=== PATIENT | male | born 1930 | race Caucasian/White ===

== ENCOUNTER 2017-06-14 16:14 | Outpatient (CLI) | payer MEDICARE | END 2017-06-14 16:15 | disposition critical access hospital (66) | LOC: EMS 16:14 | PROVIDERS: ATTEND Surgery | DX: M54.2 Cervicalgia (principal) | CPT/HCPCS: A0425; A0429 ==

== ENCOUNTER 2017-06-14 16:30 | Emergency (ER) | payer MEDICARE ==
[2017-06-14 16:44] VITALS: BP 155/93
[2017-06-14] MEDS ORDERED: IBUPROFEN 400 MG TABLET PO STA (17:18)
--- NOTE | 2017-06-14 17:20 | ED Physician Documentation ---
PD HPI NECK PAIN - Stated complaint Stated Complaint: NECK/BACK PX - Chief complaint Chief Complaint: Back Pain - History obtained from History obtained from: Patient, EMS - History of Present Illness Timing - onset: How many weeks ago (1) Timing - duration: Weeks (1) Timing - details: Still present, Intermittant Pain level max: 4 Pain level now: 2 Location: Mid Quality: Pain Associated symptoms: No: Fever, Weakness, Numbness, Incontinent of urine, Unable to urinate, Hematuria Improves with: Rest Worsened by: Movement Contributing factors: Other (none) - Additional information Additional information: Patient is severely demented and unable to give any history in the emergency department. History is obtained from EMS. After the initial history was obtained, I spoke with the nurse from [facility] who states that she thought he appeared more pale today than usual and stated that he said he had abdominal pain at one point. His vital signs were normal. She states that she contacted his PCPs office who stated to send the patient to the emergency department for evaluation. She states that he has not had any dark or tarry stools to her knowledge. States that he has not had any vomiting or fevers. Review of Systems Unable to obtain: Dementia PD PAST MEDICAL HISTORY - Past Medical History Past Medical History: Yes Neuro: Dementia - Present Medications Home Medications: Ambulatory Orders Medication Instructions Recorded Confirmed Acetaminophen [Tylenol] 650 mg PO Q6H PRN 06/14/17 06/14/17 Ibuprofen [Motrin] 400 mg PO Q6H PRN #20 tablet 06/14/17 Lorazepam [Ativan] 1 mg PO 06/14/17 risperiDONE [RisperDAL] 0.5 mg PO QD 06/14/17 06/14/17 - Allergies Allergies/Adverse Reactions: Allergies Allergy/AdvReac Type Severity Reaction Status Date / Time No Known Drug Allergies Allergy Verified 06/14/17 16:41 - Living Situation Living Arrangement: reports: residential - Social History Does the pt smoke?: No Does the pt have substance abuse?: No - Family History Family history: reports: Non contributory PD ED PE NORMAL - Vitals Vital signs reviewed: Yes - General General: No acute distress, Well developed/nourished, Other (Alert, pleasant) - HEENT HEENT: Atraumatic, PERRL, Moist mucous membranes, Pharynx benign - Neck Neck: Supple, no meningeal sign, No bony TTP, Other (Full range of motion without pain) - Cardiac Cardiac: RRR, Strong equal pulses - Respiratory Respiratory: No respiratory distress, Clear bilaterally - Abdomen Abdomen: Soft, Non tender, Non distended - Rectal Rectal: Pt declined - Derm Derm: Warm and dry - Extremities Extremities: No deformity - Neuro Neuro: No motor deficit, No sensory deficit, Other (Alert, oriented to person only) Results - Vitals Vitals: Vital Signs - 24 hr 06/14/17 16:36 Temperature 36.4 C L Heart Rate 64 Respiratory 16 Rate Blood Pressure 155/93 H O2 Saturation 97 Oxygen O2 Source Room air - Labs Labs: Laboratory Tests 06/14/17 06/14/17 06/14/17 18:13 18:13 18:15 WBC 8.2 RBC 4.69 L Hgb 15.0 Hct 43.8 MCV 93.4 MCH 32.1 H MCHC 34.3 RDW 13.9 Plt Count 227 MPV 7.0 L Neut # 5.6 Lymph # 1.6 [place] # 1.0 Eos # 0.0 Baso # 0.1 Absolute Nucleated RBC 0.00 Nucleated RBCs 0.0 Sodium 137 Potassium 3.6 Chloride 100 L Carbon Dioxide 28 Anion Gap 9.0 BUN 16 Creatinine 0.8 Estimated GFR (MDRD) 92 Glucose 115 H Calcium 9.4 Total Bilirubin 1.3 H AST 18 ALT 16 Alkaline Phosphatase 44 Total Protein 7.7 Albumin 4.8 Globulin 2.9 Albumin/Globulin Ratio 1.7 Lipase 15 L Urine Color YELLOW Urine Clarity CLEAR Urine pH 6.0 Ur Specific [place] 1.020 Urine Protein NEGATIVE Urine Glucose (UA) NEGATIVE Urine Ketones NEGATIVE Urine Occult Blood TRACE-INTA Urine Nitrite NEGATIVE Urine Bilirubin NEGATIVE Urine Urobilinogen 1 (NORMAL) Ur Leukocyte Esterase NEGATIVE Ur Microscopic Review NOT INDICATED Urine Culture Comments NOT INDICATED PD MEDICAL DECISION MAKING - ED course Complexity details: reviewed results, re-evaluated patient, considered differential, d/w patient ED course: Patient is an 86-year-old gentleman sent for neck pain as well is appearing pale to the nurse at the halfway today. His skin color is normal here. Vital signs are normal. Vital signs at the halfway are normal. No acute laboratory abnormalities. No UTI. He states that he does have some neck pain with movement, but this resolved with Motrin. He adamantly refuses a rectal examination and given his normal blood work and normal vital signs, will defer this at this time. We will have patient follow-up closely with his PCP. Patient appears very well. Ambulating without any difficulty. Normal gait. Abdomen remained soft, nontender nondistended on serial examination This document was made in part using voice recognition software. While efforts are made to proofread this document, sound alike and grammatical errors may occur. Departure - Departure Disposition: Home, Self Care Clinical Impression: Neck pain Condition: Good Instructions: ED Neck Pain No Trauma Follow-Up: ANDREA LI MD [Physician No Access] - Within 1 week Prescriptions: Ibuprofen [Motrin] 400 mg PO Q6H PRN #20 tablet PRN Reason: neck pain Comments: you need to follow up with your doctor for further care Your blood pressure was elevated today on check in to the emergency department. This does not mean that you have hypertension, it is a common phenomenon to check into the emergency department and have elevated blood pressure. I recommend that you see your primary care physician within the week to have it rechecked when you're feeling better. Discharge Date/Time: 06/14/17 19:03
[2017-06-14] MEDS ORDERED: IBUPROFEN 400 MG TABLET PO ONE (17:29)
[2017-06-14 18:18] LABS: BASOPHILS # (AUTO) 0.1 10^3/uL (0.0-0.1); BASOPHILS % (AUTO) 0.7 %; EOSINOPHILS % (AUTO) 0.5 %; HCT - HEMATOCRIT 43.8 % (42.0-52.0); LYMPHOCYTES # (AUTO) 1.6 10^3/uL (1.5-3.5); LYMPHOCYTES % (AUTO) 18.9 %; MEAN CORPUSCULAR HEMOGLOBIN 32.1 pg (27.0-31.0); MEAN CORPUSCULAR HGB CONC 34.3 g/dL (32.0-36.0); MEAN CORPUSCULAR VOLUME 93.4 fL (80.0-94.0); MONOCYTES % (AUTO) 12.1 %; NEUTROPHILS # (AUTO) 5.6 10^3/uL (1.5-6.6); NEUTROPHILS % (AUTO) 67.8 %; RED BLOOD COUNT 4.69 10^6/uL (4.70-6.10); RED CELL DISTRIBUTION WIDTH 13.9 % (12.0-15.0); UNCORRECTED WHITE BLOOD COUNT 8.2 x10^3/uL; WHITE BLOOD COUNT 8.2 x10^3/uL (4.8-10.8)
[2017-06-14 18:32] LABS: ALBUMIN/GLOBULIN RATIO 1.7 (1.0-2.2); BILIRUBIN,TOTAL 1.3 mg/dL (0.2-1.0); CALCIUM 9.4 mg/dL (8.5-10.3); CREATININE 0.8 mg/dL (0.6-1.2); POTASSIUM 3.6 mmol/L (3.5-5.0); TOTAL PROTEIN 7.7 g/dL (6.7-8.2)
[2017-06-14 18:33] LABS: BILIRUBIN,URINE NEGATIVE (NEGATIVE)
[2017-06-14 18:34] LABS: UA CHARGE (STRIP ONLY) YES; UR CULTURE IF IND NOT INDICATED
== END 2017-06-14 19:03 | disposition home or self-care (01) ==
LOC: EDUNIT# → ED 16:30
DX: M54.2 Cervicalgia (principal); R03.0 Elevated blood-pressure reading, without diagnosis of hypertension; F03.90 Unspecified dementia, unspecified severity, without behavioral disturbance, psychotic disturbance, mood disturbance, and anxiety
CPT/HCPCS: 36415; 80053; 81003; 83690; 85025; 99282; 99283; A9270; 81001; 87086

== ENCOUNTER 2017-08-25 18:32 | Outpatient (CLI) | payer MEDICARE | END 2017-08-25 18:33 | disposition critical access hospital (66) | LOC: EMS 18:32 | PROVIDERS: ATTEND Surgery | DX: R69 Illness, unspecified (principal) | CPT/HCPCS: A0425; A0429 ==

== ENCOUNTER 2017-08-25 18:47 | Emergency (ER) | payer MEDICARE ==
--- NOTE | 2017-08-25 19:01 | ED Physician Documentation ---
PD HPI LOWER EXT INJURY - Stated complaint Stated Complaint: R HIP PN - Chief complaint Chief Complaint: Ext Problem - History obtained from History obtained from: EMS - History of Present Illness PD HPI LOW EXT INJURY LOCATION: Other (This is a very demented 86-year-old gentleman who presents from an assisted living facility. Reportedly he had a ground-level fall earlier today and he is favoring 1 of his legs and they are worried about a hip injury. The patient is a completely unreliable historian,, claims no pain at all.) Review of Systems Unable to obtain: Confused, Dementia PD PAST MEDICAL HISTORY - Past Medical History Neuro: Dementia - Present Medications Home Medications: Ambulatory Orders Medication Instructions Recorded Confirmed Acetaminophen [Tylenol] 650 mg PO Q6H PRN 06/14/17 08/25/17 Lorazepam [Ativan] 1 mg PO QID 06/14/17 08/25/17 risperiDONE [RisperDAL] 0.5 mg PO BID 06/14/17 08/25/17 - Allergies Allergies/Adverse Reactions: Allergies Allergy/AdvReac Type Severity Reaction Status Date / Time No Known Drug Allergies Allergy Verified 08/25/17 18:54 - Social History Does the pt smoke?: No Does the pt have substance abuse?: No PD ED PE NORMAL - Vitals Vital signs reviewed: Yes - General General: Other (He is alert but completely disoriented, does not know where he is or his name, he follows commands) - HEENT HEENT: PERRL, EOMI - Neck Neck: Supple, no meningeal sign, No bony TTP - Cardiac Cardiac: RRR, No murmur - Respiratory Respiratory: No respiratory distress, Clear bilaterally - Abdomen Abdomen: Normal bowel sounds, Soft, Non tender - Extremities Extremities: Other (No tenderness of the hips or knees. I am able to get him up and he will walk and bear weight but with a mild limp.) - Psych Psych: Normal affect Results - Vitals Vitals: Vital Signs - 24 hr 08/25/17 08/25/17 18:51 20:25 Temperature 36.4 C L Heart Rate 86 55 L Respiratory 14 16 Rate Blood Pressure 133/100 H 136/83 H O2 Saturation 95 95 Oxygen O2 Source Room air - Rads (name of study) B hip and Knee xrs Radiology: EMP read contemporaneously (Degenerative disease of the knees, no obvious acute disease.) PD MEDICAL DECISION MAKING - ED course ED course: He is found to be limping, possible fall, he is an unreliable historian. He is able to walk and bear weight and the examination is really not consistent with a hip fracture. Departure - Departure Disposition: 01 Home, Self Care Clinical Impression: Hip pain Qualifiers: Laterality: bilateral Qualified Code(s): M25.551 - Pain in right hip Degenerative arthritis of knee Qualifiers: Osteoarthritis type: primary Laterality: bilateral Qualified Code(s): M17.0 - Bilateral primary osteoarthritis of knee Condition: Good Record reviewed to determine appropriate education?: Yes Instructions: Osteoarthritis Common Sites Comments: Call your doctor to arrange a follow-up appointment, make the next available appointment. In the interim, return anytime if worse or if new symptoms develop. Your blood pressure was elevated today on check into the emergency department. This does not mean that you have hypertension, it is a common phenomenon to come to the emergency department and have elevated blood pressure. I recommend that you see your primary care physician within the week to have it rechecked when you are feeling better. Discharge Date/Time: 08/25/17 21:31
[2017-08-25 20:25] VITALS: BP 136/83
--- NOTE | 2017-08-25 20:29 | XRAY Preliminary Report ---
Exam: XR HIPS 2V BILAT IMPRESSION: No acute disease. [facility] SITE ID: [id number]
--- NOTE | 2017-08-25 20:32 | XRAY Preliminary Report ---
Exam: XR KNEE 3 VIEW BILAT IMPRESSION: Degenerative changes including multiple loose bodies, right more than left. No definite a cute disease. [facility] SITE ID: [id number]
--- NOTE | 2017-08-25 20:32 | XRAY Report ---
EXAM: PELVIS AND BILATERAL HIPS RADIOGRAPHY EXAM DATE: 08/25/2017 08:02 PM. CLINICAL HISTORY: Trauma, pain. COMPARISON: None. TECHNIQUE: 1 view of the pelvis and 1 view of each hip. FINDINGS: Bones: Normal. No fracture or bone lesion. Joints: Mild bilateral hip joint space narrowing. Unremarkable SI joints and pubic symphysis. Degener ative changes in lower lumbar spine. Soft Tissues: Unremarkable. IMPRESSION: No acute disease. [facility] Referring Provider Line: [phone] SITE ID: [id number]
--- NOTE | 2017-08-25 20:34 | XRAY Report ---
EXAM: BILATERAL KNEE RADIOGRAPHY EXAM DATE: 08/25/2017 08:02 PM. CLINICAL HISTORY: Trauma, pain. COMPARISON: None. TECHNIQUE: Each knee, 3 views. FINDINGS: Bones: Osteopenia. No definite fracture or other bone lesion. Joints: Mild 3 compartment joint space narrowing with marginal lipping. Multiple bilateral loose bodi es, the largest on the right measuring 15 mm in diameter and largest on the left measuring almost 9 m m in diameter. No definite effusion. Soft Tissues: Soft tissue calcification adjacent to right femoral condyle. Otherwise unremarkable. IMPRESSION: Degenerative changes including multiple loose bodies, right more than left. No definite a cute disease. [facility] Referring Provider Line: [phone] SITE ID: [id number]
== END 2017-08-25 21:31 | disposition home or self-care (01) ==
LOC: EDUNIT# → ED 18:47
DX: M25.551 Pain in right hip (principal); W18.39XA Other fall on same level, initial encounter; Y92.099 Unspecified place in other non-institutional residence as the place of occurrence of the external cause; R03.0 Elevated blood-pressure reading, without diagnosis of hypertension; F03.90 Unspecified dementia, unspecified severity, without behavioral disturbance, psychotic disturbance, mood disturbance, and anxiety
CPT/HCPCS: 73521; 99283

== ENCOUNTER 2017-09-09 10:15 | Outpatient (CLI) | payer MEDICARE ==
--- NOTE | 2017-09-09 14:47 | CONSULTATION NOTE ---
Palliative Care Consultation - Referral Referring Provider: Dr Lombardo (Dr Del Toro is PCP) Time of Visit: 10:15 Referral setting: Assisted living (Seen in home setting, which is [facility] unit, due to taxing and considerable effort required to leave the home due to advanced dementia and unsteady gait.) - Information Sources History/Review of Systems obtained from: Family, Nursing Exam limitations: Clinical condition (Advanced dementia; patient unable to verbally respond, due to combination of advanced dementia and significant [place].) - History of Present Illness Brief History of Present Illness: This is an 86-year-old gentleman with advanced dementia who has had two recent ED visits. In June 2017 for neck/back pain and abdominal pain, with all tests negative, and another ED visit Aug 25, 2017, for hip pain following a ground level fall. He moved to [facility] on Aug 23, 2017, with his , Varsha who also has dementia. Apart from his advanced dementia, he has very little past medical history (HLD, BPH, AAA, glaucoma, sleep apnea not on CPAP). His eldest son, Craig, lives in [place] and travels here about every 5-6 weeks to visit his father and step- mother. The patient and his retired to [facility] around 1986. Craig noticed decline in both and in October 2016 and he helped them move into [facility] assisted living in March 2017. He then noted very steep ddecline in cognition ability between March and July 2017 -- a marked difference in their function. They then moved on Aug 23, 2017 to [facility]. He reports that they have a high level of denial and do not believe they have changed. They have always been very active -- his loves to walk and hike, and he loved cycling, and was stilling doing it back in March of this year. They are not happy being here, and are "escape artists," trying to get out. They will look out the front window and say that they want to go to "that hotel" ([facility]'s building, where they lived from March to August 2017 ). The patient is still able to point out his former home on [address] [address] [facility] on a map. Because Craig lives so far away and can't get here very often to take care of his father and step-mother, he was considering moving them to a facility in [place], [place], to be closer to his other brother, Cipriano, who lives in [place], [place]. It's a two-hour round trip, and Cipriano said he would be able to visit only every two weeks or so. Craig has decided to keep them at [facility] for now, in order to not submit them to further stress, trauma, and change in their environment. He will continue to visit every 5-6 weeks. The patient was alert during my visit, but mainly non-responsive to my questions , inquiries, or comments. He uttered only one or two instances of "no." It is a combination of hard of hearing and dementia, but more due to his rapidly advancing dementia. The patient refuses to wear hearing aids, per his son. He also reports that the patient's decline in responsiveness is very recent. He transfers easily from chair to standing, but has an unsteady gait. He favors his L foot, which is from a childhood injury of L ankle, the bones of which are quite enlarged. He ambulates without a walker. He prefers a cane but is not permitted to use one in the facility. His is quite a nimble walker, and she "pulls" him along, by linking her arm in his, unfortunately increasing his fall risk. They do not share the same room, but are constantly together. Medical/Surgical History - Past Medical History Cardiovascular: reports: High cholesterol, Murmur (unspecified) Respiratory: reports: Sleep apnea. denies: CPAP use Neuro: reports: Dementia : reports: Benign prostate hypertrophy HEENT: reports: Glaucoma Musculoskeletal: reports: Osteoarthritis - Past Surgical History Cardiovascular: reports: AAA Social History - Living Situation Living arrangement: Assisted living Living Situation: With spouse/s.o., With caregiver(s) Support System: The patient has 3 sons. Son/DPOA Craig lives in [place] and visits every 5-6 weeks. Son, Cipriano, lives in [place], [place] and another son, Tk, lives on the streets in [place], [place]. Medications/Allergies - Medications Home Medications: Ambulatory Orders Medication Instructions Recorded Confirmed Lorazepam [Ativan] 0.5 mg PO Q6H PRN 06/14/17 09/09/17 risperiDONE [RisperDAL] 0.5 mg PO BID 06/14/17 09/09/17 Acetaminophen 500 mg PO Q4H PRN MDD 3000 mg max 09/09/17 09/09/17 per day - Allergies Allergies/Adverse Reactions: Allergies Allergy/AdvReac Type Severity Reaction Status Date / Time No Known Drug Allergies Allergy Verified 08/25/17 18:54 Review of Systems - Constitutional Constitutional: reports: Weight loss (Small loss over 3 months: Jul 2017 188 lbs. Aug 2017 184 lbs. Sep 2017 183.8 lbs.) - Ears, Nose & Throat Ears, Nose & Throat: reports: Hearing loss. denies: Hearing aids (refuses to wear them) - Cardiovascular Cardiovascular: denies: Chest pain, Edema - Respiratory Respiratory: denies: Cough, SOB at rest, SOB with exertion - Gastrointestinal Gastrointestinal: denies: Constipation - Genitourinary Genitourinary: denies: Dysuria - Musculoskeletal Musculoskeletal: reports: Joint swelling - Neurological Neurological: reports: Memory problems, Abnormal gait Physical Exam - Vital Signs Temperature: 97.4 F Pulse Rate: 53 O2 Saturation: 95 Blood Pressure: 118/78 - Physical Exam General Appearance: positive: No acute distress, Nonresponsive (no verbal responses. Was able to generally follow directions when I spoke directly into his ear) Eyes Bilateral: positive: EOMI, No lid inflammation, Conjunctivae nml, No scleral icterus ENT: positive: No signs of dehydration Neck: positive: Thyroid nml, No JVD, Trachea midline Cardiovascular: positive: Decreased pulse(s) Respiratory: positive: No respiratory distress, Breath sounds nml Skin: positive: No symptoms Extremities: positive: No pedal edema, Other (L ankle bone deformation, enlarged ). negative: Full ROM Neurologic/Psychiatric: positive: Disoriented to place, Disoriented to time, Flat affect Palliative Care - POLST Patient has POLST: No Pain: Location (L ankle), Comment (chronic, lifelong pain L ankle, but no complaints) Tiredness/Fatigue: None Drowsiness/Sedation: None Nausea: None Depression: None Anxiety: None Dyspnea: None Anorexia: None Sleep: Sleeps well Constipation: No Performance Status: Previous level of function prior to this episode: Bicycling in March, when he and his moved to assisted living. Current level of functioning: Significant cognitive decline in past 6 months, with single-syllable verbalization and lack of responsiveness being very recent. Requires assistance for all ADLs and showering. Still ambulatory, with unsteady gait. Minor weight loss (4 lbs in 2 months). Palliative Care Performance Status: 60% FAST scale for Alzheimer's: 7b - Palliative Care Discussion: Who is present: The patient, his Varsha, his son Craig, and myself. Surrogate decision maker: Son/DPLETHA Law. [phone] mobile. lives in [place]. Son/2nd DPOA Cipriano Law. [phone]. Lives in [place] Patient/Family understanding of the illness: Neither the patient nor his have insight or understanding of their dementia. The son reports that they are in a state of denial. They can even get upset, according to the son, with the mention of the name of a provider who had told them they had a serious illness. The son has a realistic evaluation of their dementia and has witnessed their very rapid decline in just the past year, and particularly between March and July. Information preferences: Go through the son, Craig. Most important goals: He does not want to prolong their lives, knowing how active they used to be, and how his father, especially, would never want to knowingly live like this. He does hope that the disease process of their dementia will not drag out for 10 years. His preference is comfort care, and he is ready to sign the POLST specifying DNR and comfort. However, he wants to first review the advanced directive his father signed, and that is back in [place]. He also wants to discuss it with his brother Cipriano, so he has a chance to weigh in. He will fax or email it back to me, and mail the original back so I can sign it and put it in the medical records, with the original to [facility]. Impression and Recommendations - Palliative Care Impression: This is an 86-year-old gentleman with advanced dementia and very little in the way of medical history. He recently moved into [facility] dementia unit with his , who also has dementia. they both have had a rapid progression of dementia in the past year, and particularly the past 6 months. The patient is a high fall risk since he is ambulatory but with a stiff gait, and his who "pulls" him down the hallways. He does not currently meet criteria for Hospice, but his son wants Palliative Care support and monitoring. This will help since none of the patient's sons live in the area. Time Spent: 60 minutes were spent with more than 50% of the time spent on counseling, education, and coordination of care regarding dementia and end of life. Provided anticipatory guidance.
== END 2017-09-09 10:16 | disposition home or self-care (01) ==
LOC: PC 10:15
PROVIDERS: ATTEND Nurse Practitioner
DX: Z51.5 Encounter for palliative care (principal); F03.90 Unspecified dementia, unspecified severity, without behavioral disturbance, psychotic disturbance, mood disturbance, and anxiety; G47.30 Sleep apnea, unspecified; N40.0 Benign prostatic hyperplasia without lower urinary tract symptoms; G89.29 Other chronic pain; M25.572 Pain in left ankle and joints of left foot; R26.81 Unsteadiness on feet; Z91.81 History of falling

== ENCOUNTER 2017-11-11 15:19 | Outpatient (CLI) | payer MEDICARE ==
--- NOTE | 2017-11-11 16:05 | CONSULTATION NOTE ---
Palliative Care Follow Up - Referral Referring Provider: Referral: Dr Lombardo. PCP: Dr Del Toro Time of Visit: 11/11/2017. 10:10 - 10:40 Referral setting: Assisted living (Seen in home setting due to taxing and considerable effort required to leave the home setting due to advanced dementia and unsteady gait.) - Information Sources Records reviewed: RN notes reviewed, Previous records reviewed History/Review of Systems obtained from: Patient, Family, Nursing Exam limitations: Clinical condition (Advanced dementia; limited communication capacity; memory loss) - History of Present Illness Update Brief HPI Update: This is an 86-year-old gentleman with advanced dementia who has had steady functional and cognitive decline for the past year, and especially since last summer. He and his have been living at [facility] dementia unit since August 23, 2017. His medical history includes HLD, BPH, AAA, glaucoma, sleep apnea not on CPAP. His eldest son, Craig, is visiting here for a few days from [place], he visits his father and stepmother approximately every 5-8 weeks. The patient also has another son, Cipriano, who lives in [place], [place]. Cipriano visited earlier in October and is scheduled for another visit at the end of November. The patient has been extremely stable and with no outstanding issues since my last visit 2 months ago. Nursing says he is extremely pleasant and easy to work with, he and his are now sharing at the same room at the facility, and this is working out very well. They are constantly together ambulating in the hallways, and his , Varsha, has gone on 1 of the Wednesday outings on the bus. However the patient has not done this himself, and Craig feels this is not a good idea since he would likely try to exit the bus and "go home." While Craig the son is here, father and son are enjoying a few beers together , which provides gives a lot of pleasure for both patient and son. The patient is very pleasant, he does not follow directions very well, likely due to his being extremely hard of hearing and it is difficult for him to hear the health and wellness instructor feminine voice. He is able to hear his son's comments and has the capacity to speak a simple, complete sentence. Most of his communication, though , is 1-2 words, and in general he speaks very little. Social History - Living Situation Living arrangement: Assisted living ([facility] dementia unit) Living Situation: With spouse/s.o., With caregiver(s) Support System: The patient has 3 sons. Son/GIANA Srinivasan lives in [place] and visits every 5- 8 weeks. Son, Cipriano, lives in [place], [place], and another son, Tk lives on the streets in [place], [place]. Medications/Allergies - Medications Home Medications: Ambulatory Orders Medication Instructions Recorded Confirmed Lorazepam [Ativan] 0.5 mg PO Q6H PRN 06/14/17 09/09/17 risperiDONE [RisperDAL] 0.5 mg PO BID 06/14/17 09/09/17 Acetaminophen 500 mg PO Q4H PRN MDD 3000 mg max 09/09/17 09/09/17 per day - Allergies Allergies/Adverse Reactions: Allergies Allergy/AdvReac Type Severity Reaction Status Date / Time No Known Drug Allergies Allergy Verified 08/25/17 18:54 Review of Systems - Constitutional Constitutional: reports: Weight loss (5 lb weight loss over 8 months: 186.2 lbs 11/08/2017. 191 lbs 03/10/2017.) - Ears, Nose & Throat Ears, Nose & Throat: reports: Hearing loss (significant. does not wear hearing aids.) - Gastrointestinal Gastrointestinal: reports: Good appetite. denies: Constipation (bowel movements every 1-2 days), Change in bowel habits, Vomiting - Genitourinary Genitourinary: denies: Frequency - Musculoskeletal Musculoskeletal: reports: Joint swelling (L ankle) - Neurological Neurological: reports: Memory problems, Abnormal gait - Psychiatric Psychiatric: denies: Aggitation, Behavior disturbances - Endocrine Endocrine: reports: Intolerance to cold - Other Findings Other Findings: Incomplete ROS due to advanced dementia. Physical Exam - Vital Signs Temperature: 97.0 F Pulse Rate: 70 O2 Saturation: 95 Blood Pressure: 124/82 - Physical Exam General Appearance: positive: No acute distress, Alert Eyes Bilateral: positive: No lid inflammation, Conjunctivae nml, No scleral icterus ENT: positive: No signs of dehydration Neck: positive: Thyroid nml, No JVD, Trachea midline Cardiovascular: positive: Regular rate & rhythm, No murmur, No gallop Respiratory: positive: No respiratory distress, Breath sounds nml Abdomen: positive: Soft. negative: Tenderness, Distended, Obese Skin: negative: No symptoms Extremities: positive: Joint swelling (Chronic L ankle swelling, limited ROM for decades) Neurologic/Psychiatric: positive: Disoriented to person, Disoriented to place, Disoriented to time, Flat affect Palliative Care - POLST Patient has POLST: Yes POLST Status: DNR, Selective Treatment Pain: No pain (no PRN pain medication (Tylenol) used this month so far) Tiredness/Fatigue: Mild (1-3) Drowsiness/Sedation: Mild (1-3) Anxiety: None (no PRN anxiolytic used this month) Anorexia: None Constipation: No - Palliative Care Discussion: Discussed with son, Craig, that the patient's status has been stable since the last palliative care visit. He is on daily Risperdal and we discussed initiating a GDR (gradual dose reduction) since he has been stable without behavioral issues. The son chooses at this time to continue with the current dose, saying, "if it is not broken, do not fix it." He confirmed that goals of care remain the same; that is, concentrate on comfort and quality of life without any attempts made to prolong life. He particularly wants to have no "dementia" medications given. He is overall very happy with the care his father and stepmother are receiving at this facility, and continues to plan visiting here about every 5-8 weeks. We agreed that he would call me when his next trip is scheduled and for follow- up visit. Or that the facility will call me in between times as needed. Impression and Recommendations - Palliative Care Impression: This is an 86-year-old gentleman with advanced dementia and very little in the way of medical history. She has been living at [facility] dementia unit along with his , LCAYTON, since August 2017. They both have experienced rapid progression of their dementia in the past year. He remains a high fall risk due to his ambulatory status and stiff gait and who "pulls" him down the hallways. Family's goals of care are comfort care without necessary prolongation of life. The patient currently does not meet criteria for hospice but palliative care will continue to monitor and transition to hospice when appropriate. Recommendations/Counseling Done: Advanced dementia: Stable without behaviors. Continue Risperdal daily at current dosage of 0.5 mg twice daily. Constipation: Stable without issue, managed with diet. Anxiety: Stable, anxiolytic as needed has not been used this month. Continue to monitor for changes in mood and behavior. Advanced care planning: POLST is in place, DNR and selective treatment. Goal is quality of life and comfort care, without prolongation of life. Son, Craig, will call when his next visit to [place] is planned to set up a follow-up visit. Also follow-up with patient on an as-needed basis. Family wants ongoing monitoring and oversight by palliative care , with transition to hospice when appropriate. Time Spent: 30 minutes were spent with more than 50% of the time spent on counseling, education, and coordination of care.
== END 2017-11-11 15:20 | disposition home or self-care (01) ==
LOC: PC 15:19
PROVIDERS: ATTEND Nurse Practitioner
DX: Z51.5 Encounter for palliative care (principal); F03.90 Unspecified dementia, unspecified severity, without behavioral disturbance, psychotic disturbance, mood disturbance, and anxiety; R26.81 Unsteadiness on feet; Z66 Do not resuscitate

== ENCOUNTER 2018-01-27 12:13 | Outpatient (CLI) | payer MEDICARE ==
--- NOTE | 2018-01-27 12:20 | CONSULTATION NOTE ---
Palliative Care Follow Up - Referral Referring Provider: Dr Lombardo referring; Dr Del Toro PCP Time of Visit: 01/27/2018. 10:25 - 11:05 Referral setting: Assisted living (Seen in home setting due to taxing and considerable effort required to leave the home due to advanced dementia and unsteady gait. Also access to facility documentation in required.) Referral Reason: Advanced dementia - Information Sources Records reviewed: RN notes reviewed, Previous records reviewed History/Review of Systems obtained from: Patient, Family, Nursing Exam limitations: Clinical condition (Advanced dementia/cognitive decline. Significant loss of hearing.) - History of Present Illness Update Brief HPI Update: -This is an 87-year-old gentleman with advanced dementia and significant hearing loss who has had steady functional and cognitive decline for the past year especially since summer 2016. -He has lived at [facility] with his , Varsha, since August 2017. -Medical history: HLD, murmur (unspecified), sleep apnea (no CPAP use), advanced dementia, BPH, glaucoma, osteoarthritis, AAA repair, date unspecified. -Eldest son, Craig, is present at this visit, as is patient's , Varsha. -Craig lives in [place] and comes every 5-6 weeks to visit his father and stepmother. -Craig has noticed a marked decline in his father's cognition and functionality. -The patient has much slower cognitive processing, part of this could be significant hearing loss and lack of comprehension. -Craig and Nursing note an increase in his fatigue and decrease in his cognition and energy levels. -Mild weight loss in the past month of 3-1/2 pounds, CROS for details. -Nursing notes he is "one of our best patients" with no behavior issues, he is very quiet and cooperative, eats well, especially ice cream. 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 It is getting harder for him to keep up her pace. -The only medication he takes regularly is risperidone 0.5mg BID. He has not taken any PRN lorazepam or Tylenol this month. Social History - Living Situation Living arrangement: Assisted living ([facility] dementia unit) Living Situation: With spouse/s.o., With caregiver(s) Support System: The patient and his have been together over 40 years and are very close. The patient has 3 sons. Craig is the eldest and the DPOA, he lives in [place] with his . Son Cipriano lives in [place], [place], and visits occasionally. Third son, Tk, lives "on the streets" of [place], [place]. Medications/Allergies - Medications Home Medications: Ambulatory Orders Medication Instructions Recorded Confirmed Lorazepam [Ativan] 0.5 mg PO Q6H PRN 06/14/17 01/27/18 risperiDONE [RisperDAL] 0.5 mg PO BID 06/14/17 01/27/18 Acetaminophen 500 mg PO Q4H PRN MDD 3000 mg max 09/09/17 01/27/18 per day - Allergies Allergies/Adverse Reactions: Allergies Allergy/AdvReac Type Severity Reaction Status Date / Time No Known Drug Allergies Allergy Verified 08/25/17 18:54 Review of Systems - Constitutional Constitutional: reports: Fatigue (increasing), Weight loss (183.6 lbs 01/04/18. 187 lbs 12/06/17. 186.2 lbs 11/08/17. 187 lbs 10/10/17. 1838 lbs 09/03/17. 184 lbs 08/08. 188 lbs 07/14/17. 191 lbs 03/10/17. Mild weight loss of 3.4 lbs (1.8%) in one month, from December to January 2018.) - Eyes Eyes: reports: Corrective lenses - Ears, Nose & Throat Ears, Nose & Throat: reports: Hearing loss (significant), Hearing aids (won't wear them) - Cardiovascular Cardiovascular: reports: Decr. exercise tolerance - Gastrointestinal Gastrointestinal: reports: Other (Unable to monitor bowel movements; he goes to the bathroom independently.) - Genitourinary Genitourinary: denies: Incontinence - Neurological Neurological: reports: Abnormal gait (unsteady, hesitant, short steps) - Psychiatric Psychiatric: denies: Anxiety, Behavior disturbances - Other Findings Other Findings: Unable to obtain ROS from patient. Obtained partial information from nursing and family. Physical Exam - Vital Signs Temperature: 96.5 F Pulse Rate: 80 O2 Saturation: 99 (room air) Blood Pressure: 117/72 - Physical Exam General Appearance: positive: No acute distress, Lethargic, Other (had difficulty comprehending, likely a combination of cognitive deficit and inability to hear) Eyes Bilateral: positive: No lid inflammation, Conjunctivae nml, No scleral icterus ENT: positive: No signs of dehydration Neck: positive: No JVD, Trachea midline Cardiovascular: positive: Regular rate & rhythm, No murmur Respiratory: positive: Chest non-tender, No respiratory distress, Breath sounds nml, Diminished throughout Skin: positive: No symptoms Extremities: positive: Joint swelling (L ankle: chronic for many years, related to old injury) Neurologic/Psychiatric: positive: Disoriented to place, Disoriented to time, Flat affect Palliative Care - POLST Patient has POLST: Yes POLST Status: DNR, Selective Treatment Tiredness/Fatigue: Moderate (4-6) Sleep: Other (Increased need for sleep) Constipation: Comment (Unable to monitor; he goes to the bathroom independently) Performance Status: -Patient is continent of bowel and bladder. -Able to self-transfer with effort. -Ambulates independently, gait is hesitant and slow. -Appetite is OK, has a recent mild weight loss. He like and is motivated by ice cream and cookies. - Palliative Care Discussion: Discussed Hospice, what it is and its benefits with son, provided anticipatory guidance. Son is supportive of eventual transition to hospice when his father meets criteria. His main concern is that patient and his can remain together, and that they can remain in this facility. The focus and goal of care remains comfort and not using medications to prolong life. Impression and Recommendations - Palliative Care Impression: This is an 87-year-old gentleman with advanced dementia and very little in the way of medical history. He lives at [facility] with his and continues to be ambulatory but is slowly and steadily declining in functionality, cognition, and energy levels. His social support is having his at his side , as well as his son from the [facility] who visits him regularly every 5-6 weeks, and another son on the [facility] who visits sporadically. He would benefit from continued oversight of palliative care, with monitoring for eventual transition to hospice when appropriate. Recommendations/Counseling Done: Weight loss: He has had a mild weight loss: 3.4 lbs (1.8%) between December and January 2018, and 7.4 lbs (3.8%) over 11 months. He was 191 lbs 03/10/17, 187 lbs 12/06/17, and 183.6 lbs 01/04/18. Okay to provide treats like ice cream and cookies. Can consider adding Ensure. I increased weight monitoring to twice monthly. Constipation: Managed by diet. Unable to monitor since he is continent and goes to the toilet independently. Nursing will continue to monitor. Anxiety: This has been stable, he is not using the PRN lorazepam, and nursing notes no behaviors. Continue the low dose of risperidone. Can consider discontinuation, in consultation with son. This is the only medication he is taking. Dementia: Slow, steady decline in cognition, exacerbated by his significant hearing loss, and refusal to wear his hearing aids. He is more fatigued and wants to sleep more. May consider labs at next visit (his son will visit in March ): in Jun 2017 his Hgb/Hct was normal: 15.0 and 43.8, RBC low at 4.69. Advanced care planning: POST is DNR and selected interventions. Son wants the goal to be comfort and keeping the patient together with his , and no life- prolonging medications. He is open to Hospice when criteria are met. Next visit: Sometime in March, son Craig will email me when he is coming to town. Time Spent: 30 minutes were spent with more than 50% of the time spent on counseling, education, and coordination of care.
== END 2018-01-27 12:14 | disposition home or self-care (01) ==
LOC: PC 12:13
PROVIDERS: ATTEND Nurse Practitioner
DX: Z51.5 Encounter for palliative care (principal); R63.4 Abnormal weight loss; F41.9 Anxiety disorder, unspecified; F03.90 Unspecified dementia, unspecified severity, without behavioral disturbance, psychotic disturbance, mood disturbance, and anxiety; R26.81 Unsteadiness on feet; Z79.899 Other long term (current) drug therapy; H91.93 Unspecified hearing loss, bilateral; Z66 Do not resuscitate

== ENCOUNTER 2018-03-29 21:17 | Outpatient (CLI) | payer MEDICARE ==
--- NOTE | 2018-03-29 21:28 | CONSULTATION NOTE ---
Palliative Care Follow Up - Referral Referring Provider: Dr Del Toro Time of Visit: 03/29/2018. 12:55 - 13:10 Referral setting: Assisted living (Seen in home setting due to taxing and considerable effort required to leave the home due to advanced dementia and unsteady gait. Also access to facility documentatoin is required.) Referral Reason: Advanced dementia - Information Sources Records reviewed: RN notes reviewed, Previous records reviewed History/Review of Systems obtained from: Family, Nursing Exam limitations: Clinical condition (Advanced dementia; significant hard of hearing; difficulty processing questions.) - History of Present Illness Update Brief HPI Update: -87-year-old gentleman with advanced dementia, significant hearing loss, and slow but steady functional and cognitive decline particularly since summer 2016. -Medical history: HLD, murmur (unspecified), sleep apnea (no CPAP use), advanced dementia, BPH, glaucoma, osteoarthritis, AAA repair, date unspecified. -He has been living with his Varsha at [facility] since August 2017. -Eldest son, Craig, visits about every 5-6 weeks from [place]. - Varsha fell today and split her lip, taken to ED earlier today to get sutures, and Craig now needs to take her to a dentist for possible loose teeth. -Patient is quite calm and unaffected with this activity around him. -He has been slowly and steadily declining. -Nursing feels her would be declining more quickly if it weren't for his and her energy level. She keeps him walking around the facility every day; otherwise, he would like be sitting or lying most of the time. -His son Craig notices he walks slower, but he is talking more during this visit. -Patient still loves sweets: Ice cream, cakes, cookies. -He has gained a modest amount of weight. March 2017 he weighed 191 pounds, and on 03/23/18 he weighed 194 pounds. During this past year he ranged from 183 and 188 lbs. -He is not able to hear my voice even when I am speaking quite loudly, and looks at me but doesn't respond, and appears to have problems processing. -Higher voices are difficult for him to hear. -However he does respond immediately to his son's comments and questions, seemingly without problems hearing his deeper voice. Replies are short, 1-3 words -Nursing reports he is very stable, sweet and easy to work with. Social History - Living Situation Living arrangement: Assisted living ([facility] demet[facility] unit) Living Situation: With spouse/s.o., With caregiver(s) Support System: Son, Craig, is DPOA, lives in [place], and flies here every other month. Son Cipriano lives in [place], [place], visits occasionally. Third son, Tk, lives "on the streets" in [place], [place]. Patient has been to Varsha 40+ years. Medications/Allergies - Medications Home Medications: Ambulatory Orders Medication Instructions Recorded Confirmed Lorazepam [Ativan] 0.5 mg PO Q6H PRN 06/14/17 03/29/18 risperiDONE [RisperDAL] 0.5 mg PO BID 06/14/17 03/29/18 Acetaminophen 500 mg PO Q4H PRN MDD 3000 mg max 09/09/17 03/29/18 per day - Allergies Allergies/Adverse Reactions: Allergies Allergy/AdvReac Type Severity Reaction Status Date / Time No Known Drug Allergies Allergy Verified 08/25/17 18:54 Review of Systems - Constitutional Constitutional: reports: Fatigue, Weight gain (March 2017 he weighed 191 pounds, and on 03/23/18 he weighed 194 pounds. During this past year he ranged from 183 and 188 lbs.). denies: Poor appetite - Eyes Eyes: reports: Corrective lenses - Ears, Nose & Throat Ears, Nose & Throat: reports: Hearing loss (significant), Hearing aids (doesn't wear them) - Cardiovascular Cardiovascular: reports: Decr. exercise tolerance - Respiratory Respiratory: denies: Cough - Gastrointestinal Gastrointestinal: denies: Constipation, Diarrhea - Genitourinary Genitourinary: denies: Incontinence - Musculoskeletal Musculoskeletal: reports: Stiffness, Limited range of motion, Joint swelling (L ankle, chronic x years). denies: Assistive devices, Transfer issues - Neurological Neurological: reports: Memory problems, Abnormal gait (slow, unsteady) - Psychiatric Psychiatric: denies: Aggitation, Behavior disturbances Physical Exam - Vital Signs Temperature: 96.6 F Pulse Rate: 61 O2 Saturation: 96 Blood Pressure: 118/75 - Physical Exam General Appearance: positive: No acute distress, Alert Eyes Bilateral: positive: EOMI, No lid inflammation, Conjunctivae nml, No scleral icterus ENT: positive: No signs of dehydration Neck: positive: Trachea midline Cardiovascular: positive: Regular rate & rhythm, No murmur, No gallop Respiratory: positive: Chest non-tender, No respiratory distress, Diminished throughout Skin: positive: No symptoms Extremities: positive: Non-tender, No pedal edema, Joint swelling (L ankle, old injury) Neurologic/Psychiatric: positive: Disoriented to place, Disoriented to time, Flat affect Palliative Care - POLST Patient has POLST: Yes POLST Status: DNR, Selective Treatment Pain: No pain Tiredness/Fatigue: Moderate (4-6) Drowsiness/Sedation: None Nausea: None Anxiety: None Sleep: Sleeps well Performance Status: Stable but with low decline. Still ambulatory. - Palliative Care Discussion: Goal is to keep patient and his together and as comfortable as possible, with good quality of life, without prolongation of life. His fell and injured her lip, went to ED for sutures, and then to dentist for evaluation of loose teeth. Patient was unperturbed by the upheaval. Impression and Recommendations - Palliative Care Impression: 87-year-old gentleman with advanced dementia living at [facility] with his . The two of them are ambulatory, but he is slowly and steadily declining in functionality and energy. Nursing reports no new issues, and the patient is stable and at his baseline. He would benefit from continued palliative care oversight and support, with eventual transition to hospice when appropriate. Recommendations/Counseling Done: Appetite: Good, has a mild weight gain, now at 194 lbs. Like sweets and desserts. Let him enjoy his sweets but monitor so it doesn't get out of hand. Constipation: Managed by diet. Goes to bathroom independently, so unable to monitor. Dementia without behavior disturbance: Stable within a slow, steady state of decline. Behaviors controlled with risperidone twice daily, and lorazepam as needed (none administered this past month). He is walking slower these days, and would be sedentary without the influence of his , who keeps him active and walking around the facility. He has difficulty processing conversation, exacerbated by his profound hearing loss. Advanced care planning: POLST is DNR and selective; no prolongation of life. Keep him comfortable and keep him together with his . Follow up when son, Craig, comes to town every other month, and as needed. Time Spent: 15 minutes were spent with more than 50% of the time spent on counseling, education, and coordination of care.
== END 2018-03-29 21:18 | disposition home or self-care (01) ==
LOC: PC 21:17
PROVIDERS: ATTEND Nurse Practitioner
DX: Z51.5 Encounter for palliative care (principal); R63.5 Abnormal weight gain; F03.90 Unspecified dementia, unspecified severity, without behavioral disturbance, psychotic disturbance, mood disturbance, and anxiety; H91.93 Unspecified hearing loss, bilateral; Z66 Do not resuscitate; Z79.899 Other long term (current) drug therapy

== ENCOUNTER 2018-08-22 13:05 | Outpatient (CLI) | payer MEDICARE ==
--- NOTE | 2018-08-22 16:26 | CONSULTATION NOTE ---
Palliative Care Follow Up - Referral Referring Provider: Dr Lombardo Time of Visit: 08/22/2018. 13:05 - 13:35 Referral Reason: Dementia - Information Sources Records reviewed: RN notes reviewed, Previous records reviewed History/Review of Systems obtained from: Patient, Family, Nursing Exam limitations: Clinical condition (hard of hearing; advanced dementia; mostly nonverbal) - History of Present Illness Update Brief HPI Update: -87-year-old gentleman with advanced dementia, significant hearing loss, and slow but steady functional and cognitive decline. He and his have been living at [facility] for one year. -Medical history: HLD, murmur (unspecified), sleep apnea (no CPAP use), advanced dementia, BPH, glaucoma, osteoarthritis, AAA repair, date unspecified. -His trajectory is slow decline. He continues to be active and ambulate, thanks to the insistence of his , who is also a resident in the dementia unit. -Thanks to her insistence that he accompany her as she walks around the facility, he remains mobile and active, and the two of them can generally be seen in the hallways and social areas. -The patient is mostly non-verbal when I speak with him or ask questions, but he responds to his son's questions. Patient has very slow processing time and is significantly hard of hearing, but son Craig reports that he has seen an improvement in his father's functionality and notes he has been more talkative lately. -The resident still has a good appetite, particularly for sweets -- mention the word cookie, and he brightens right up, repeating "cookie?" -Patient has had more problems "hitting the toilet" when he urinates. The facility is going to change the color of his toilet seat to a contrasting color (black or blue) as an experiment to see if this helps him visually. Dementia patients have difficulty distinguishing items that are white on white and the theory is that a contrasting color can help them. This includes also putting "white food" (potatoes, rice, etc) onto plates with a contrasting color. -Son asked about mild edema on feet. I recommended Foamtreads physicians slippers with velcro fastenings on top and at heel and showed him online. -Also recommended to nursing to elevate LEs throughout day, a challenge since Varsha keeps the patient moving and doesn't give him a chance to take naps. -Patient was already on risperidone 0.5mg PO BID when he entered the palliative care service. He has very stable behavior with no combativeness, agitation or delusions. -The son is not aware of the history of why his father was started on antipsychotics. We discussed the benefits and burdens of continuing or cutting down/discontinuing, I recommended starting a trial gradual dose reduction and his son agreed. -He also has lorazepam 0.5mg for anxiety as needed but it's not been used. Social History - Living Situation Living arrangement: Assisted living ([facility]) Living Situation: With spouse/s.o., With caregiver(s) Support System: Eldest son, Craig, visits about every other month from [place]. Son Cipriano lives in [place], [place], and visits occasionally. Third son, Tk, lives "on the streets" in [place], [place]. The patient and Varsha have been 40+ years. Medications/Allergies - Medications Home Medications: Ambulatory Orders Medication Instructions Recorded Confirmed Lorazepam [Ativan] 0.5 mg PO Q6H PRN 06/14/17 08/23/18 risperiDONE [RisperDAL] 0.25 mg PO BID MDD Decreased from 06/14/17 08/23/18 0.5mg BID Acetaminophen 500 mg PO Q4H PRN MDD 3000 mg max 09/09/17 08/23/18 per day - Allergies Allergies/Adverse Reactions: Allergies Allergy/AdvReac Type Severity Reaction Status Date / Time No Known Drug Allergies Allergy Verified 08/25/17 18:54 Review of Systems - Constitutional Constitutional: reports: Weight gain (Current weight is 202.4 lbs on 08/18/18. He was 194.6 lbs on 07/23/18. March 2017 he weighed 191 pounds. Between Jul 2017- March 2018 he ranged from 183.6 to 188 lbs. He likes cookies and sweets.). denies: Poor appetite - Eyes Eyes: reports: Corrective lenses - Ears, Nose & Throat Ears, Nose & Throat: reports: Hearing loss (significant), Hearing aids - Cardiovascular Cardiovascular: denies: Decr. exercise tolerance - Respiratory Respiratory: reports: Cough (dry cough) - Gastrointestinal Gastrointestinal: reports: Constipation (BMs daily to every 2-3 days) - Genitourinary Genitourinary: denies: Incontinence - Musculoskeletal Musculoskeletal: reports: Stiffness, Limited range of motion, Joint swelling (L ankle, chronic for years). denies: Assistive devices, Transfer issues - Integumentary Integumentary: reports: Dryness - Psychiatric Psychiatric: denies: Aggitation, Behavior disturbances - Other Findings Other Findings: Limited ROS Physical Exam - Vital Signs Temperature: 96.5 F Pulse Rate: 79 O2 Saturation: 95 (room air) Blood Pressure: 110/82 (wrist cuff) - Physical Exam General Appearance: positive: No acute distress, Alert Eyes Bilateral: positive: No lid inflammation, Conjunctivae nml, No scleral icterus ENT: positive: No signs of dehydration Neck: positive: No JVD, Trachea midline Cardiovascular: positive: Regular rate & rhythm, No murmur, No gallop Respiratory: positive: Chest non-tender, No respiratory distress, Diminished throughout Skin: positive: Dryness Extremities: positive: Non-tender, Pedal edema (mild R foot), Joint swelling (L ankle) Neurologic/Psychiatric: positive: Disoriented to place, Disoriented to time, Flat affect, Other (one or two word responses to his son, normally doesn't respond to SENIOR ENVIRONMENTAL ENGINEER) Palliative Care - POLST Patient has POLST: Yes POLST Status: DNR, Selective Treatment Pain: No pain Drowsiness/Sedation: None Anxiety: None Anorexia: None Sleep: Sleeps well Constipation: Intermittent constipation Performance Status: Ambulatory Mostly non-verbal Follows instructions Very ALTURAS Difficulty seeing toilet properly for urination, facility to bring in contrasting color to the toilet. Good appetite, weight gain due to sweets consumption - Palliative Care Discussion: Family's goal is comfort, no prolongation of life, and that the patient and his remain together. Family is supportive of a trial GDR of antipsychotic risperidone. Impression and Recommendations - Palliative Care Impression: 87-year-old gentleman with advanced dementia lives at [facility] with his Varsha who is also a resident in the dementia unit. Varsha keeps him active by constantly walking throughout the facility together. The family notes the patient has improved and is more talkative, though this was not the case during the palliative care assessment. Nursing reports he is very stable although has tendnecy to "miss the toilet" possibly due to declining vision secondary to dementia. Palliative care will continue to provide oversight, support, and monitoring for transition to hospice when criteria are met. Recommendations/Counseling Done: Weight gain: Current weight is 202.4 lbs on 08/18/18. He was 194.6 lbs on 07/23/18. March 2017 he weighed 191 pounds. Between Jul 2017-March 2018 he ranged from 183.6 to 188 lbs. He likes cookies and sweets. Son Craig does bring him cookies when he visits. Recommend cutting back on the desserts and cookies. Constipation: Managed by diet. Goes to bathroom independently, so unable to monitor. Dementia without behavior disturbance: Stable wthout any reports of agitation, combativeness, hallucinations. Son is agreeable to trialing a gradual dose reduction of risperidone, which is currently 0.5mg BID. I will decrease it to 0.25mg (1/2 tab) PO BID and requested nursing staff to monitor for behavior/mood changes. He also has lorazepam 0.5mg as needed for anxiety, likely that it's not been administered, according to the MARs given to Palliative care. Hard of Hearing: Significant. No hearing aids. He has difficulty processing conversation, exacerbated by his profound hearing loss. He tends to not answer questions posed to him by Palliative Care SENIOR ENVIRONMENTAL ENGINEER, but does answer his son's questions. Unclear whether this is due to familiarity and comfort level, or that patient is better able to hear his deeper voice. Mild lower extremity edema: Recommended nursing staff assist him to elevate legs throughout the day. He has problems working the controls of his recliner, also his keeps him walking, otherwise he would lay down and nap regularly. Also recommended that son get Foamtreads physician's slippers, with two velcro openers: top and heel. 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 POLST is DNR and selective; family wants to keep him comfortable, keep him with his , and no prolongation of life. Keep him comfortable and keep him together with his . Follow up with staff about medication GDR next week. Follow up every few months, and as needed. Time Spent: 30 minutes were spent with more than 30% of the time spent on counseling, education, and coordination of care regarding antipsychotic medications and dementia.
== END 2018-08-22 13:06 | disposition home or self-care (01) ==
LOC: PC 13:05
PROVIDERS: ATTEND Nurse Practitioner
DX: Z51.5 Encounter for palliative care (principal); R63.5 Abnormal weight gain; K59.00 Constipation, unspecified; F03.90 Unspecified dementia, unspecified severity, without behavioral disturbance, psychotic disturbance, mood disturbance, and anxiety; F41.9 Anxiety disorder, unspecified; H91.93 Unspecified hearing loss, bilateral; R60.0 Localized edema; M25.472 Effusion, left ankle; S99.912S Unspecified injury of left ankle, sequela; Z79.899 Other long term (current) drug therapy; Z66 Do not resuscitate

== ENCOUNTER 2018-11-02 11:00 | Outpatient (CLI) | payer MEDICARE ==
--- NOTE | 2018-11-02 21:17 | CONSULTATION NOTE ---
Palliative Care Follow Up - Referral Referring Provider: Dr. Radha Lombardo Time of Visit: Referral setting: Assisted living Referral Reason: Rash/Dementia - Information Sources Records reviewed: Previous records reviewed History/Review of Systems obtained from: Family (son Craig at visit; Varsha present) Exam limitations: Clinical condition (patient with advanced dementia nonverbal) - History of Present Illness Update Brief HPI Update: This is a 88-year-old gentleman with advanced dementia, who lives at [facility] memory unit with his Varsha who also has dementia. 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 Given the severity of both of their dementias, this did not go well, and they have been at [facility] for about year. Craig their son from [place], it was visiting, and requested palliative care visit secondary to patient's severe rash on his arms and head. There is also been upper respiratory illness in the facility, requested evaluation of patient's symptoms. Patient's past medical history includes advanced dementia, BPH, glaucoma, osteoarthritis, triple a repair, and hyperlipidemia. He is also significantly hard of hearing. Patient presents, is nonverbal, but trying to engage in conversation. With words nonsensical, but does follow cueing. Patient presents with significant forearm rash, red dryness and erythema. Patient scratching and does appear uncomfortable. Patient also has scabs and dry lesions on his scalp. Patient wears a hat most times. Patient has been slowing down, though has had no falls recently. His Varsha, has been having more aggressive behaviors, which often results in her frustration with him. Patient without any nasal drainage, lungs clear, vital signs stable. Though his does have significant cough and symptoms. Social History - Living Situation Living arrangement: Assisted living Living Situation: With spouse/s.o. Support System: Son Craig oversees his parents care, he comes visits every 6-8 weeks. He is available if needed other times. Patient's other sons in [facility], are minimally involved in care. Medications/Allergies - Medications Home Medications: Ambulatory Orders Medication Instructions Recorded Confirmed Lorazepam [Ativan] 0.5 mg PO Q6H PRN 06/14/17 11/03/18 risperiDONE [RisperDAL] 0.25 mg PO BID 06/14/17 11/03/18 Acetaminophen 500 mg PO Q4H PRN MDD 3000 mg max 09/09/17 11/03/18 per day Triamcinolone 0.1% Oint [Kenalog 1 applic TOP BID MDD 2 weeks to 11/03/18 11/03/18 0.1% Oint] arms - Allergies Allergies/Adverse Reactions: Allergies Allergy/AdvReac Type Severity Reaction Status Date / Time No Known Drug Allergies Allergy Verified 08/25/17 18:54 Review of Systems - Constitutional Constitutional: reports: Fatigue, Weight gain (10/23 203) - Eyes Eyes: reports: Vision loss - Ears, Nose & Throat Ears, Nose & Throat: reports: Hearing loss - Cardiovascular Cardiovascular: reports: Edema - Gastrointestinal Gastrointestinal: reports: Good appetite - Genitourinary Genitourinary: reports: Incontinence (intermittent) - Musculoskeletal Musculoskeletal: reports: Stiffness - Integumentary Integumentary: reports: Rash, Pruritis, Dryness - Neurological Neurological: reports: Memory problems, Abnormal gait, Slurred speech, Other (son visits every 6-8 weeks; reports trys to engage depending on the day; does seem to recongize him as familiar; brightens when I direct patient to son) - Psychiatric Psychiatric: denies: Anxiety, Aggitation - Hematologic/Lymphatic Hematologic/Lymphatic: denies: Recurrent infections - All Other Systems All Other Systems: reports: Other (limited ROS) Physical Exam - Vital Signs Temperature: 97.3 C Pulse Rate: 72 Respiratory Rate: 18 O2 Saturation: 94 (ra @ rest) Blood Pressure: 92/62 - Physical Exam General Appearance: positive: No acute distress, Alert ENT: positive: Other ( with URI symptoms; none observed with patient during visit; no nasal drainage though is collecting kleenex boxes; 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 negative: Pharyngeal erythema Neck: positive: Trachea midline. negative: Lymphadenopathy (R), Lymphadenopathy (L) Cardiovascular: positive: Regular rate & rhythm Respiratory: positive: No respiratory distress, Breath sounds nml, Diminished in bases Abdomen: positive: Non-tender, Soft, Nml bowel sounds, Hepatomegaly (-6) Skin: positive: Rash (patient with large patches 2-4 cms of dry red itching skin; patient scratching and seems uncomfortable; located on forearms; unclear how long; staff have been applying plain lotion only;), Other (dry scales; scabs on top of head; patient has been picking; getting haircut today) Extremities: positive: Pedal edema (patient sits with legs dependent; or is walking with ), Joint swelling (left ankle/old injury) Neurologic/Psychiatric: positive: Mood/affect nml, Weakness (noted 's behavior is more aggressive to patient; gets impatient with him and has no insight to her dementia/nor his.), Unintelligible speech, Other (no increase or need for prn ativan with risperadone decrease) Palliative Care - POLST Patient has POLST: Yes POLST Status: DNR, Selective Treatment Constipation: Comment (patient toilets on own; unable to track) Performance Status: Patient is ambulatory, most likely be more sedentary except for takes him on frequent walks. This is in the context of their history together as they were both very active, she wants to "keep him healthy" per her comment during our interview. He is intermittently incontinent, is dependent on staff for showering and bathing. They do assist with dressing. Patient and to stay together in the same room, patient is able to self feed. Since perception is he has slowed down some, his gait is shuffled, and movements quite stiff. - Palliative Care Discussion: Met with patient, son, and patient's . Craig visits every 6-8 weeks from [place], he oversees their care and does make the best of his visits with them. He is very accepting of where they are, does have some insight into the disease process, and perceives both her quality of life as declining. Patient and have been for 49 years, Elsies behaviors becoming more problematic and aggressive towards patient. Son is concerned and wondering about timing for palliative care for her, though she currently does not have high symptom burden. Patient's high risk of risk, particularly given his size, is his sequela of a fall. Goals remain to focus on quality of life issues, not to extend suffering, and avoid hospitalization or aggressive measures. Psychosocial support given to son, is quite frustrated with brothers to live closer and do not participate in visit on a regular basis Impression and Recommendations - Palliative Care Impression: This is an 88-year-old gentleman with advanced dementia, presents as a FAST 7B. Patient presents acutely with eczema on his forearms, exacerbated by constant scratching and itching. He also has seborrheic dermatitis of the scalp. Patient has not had any exacerbation of his behavioral issues. Patient does present was somewhat functional and cognitive decline, though very slow. Palliative care providing support and current living situation, it is considerable and taxing effort for the patient to leave the facility Recommendations/Counseling Done: 1. Eczema and forearms. Order triamcinolone 0.1% ointment, counseling provided to staff regarding need to rub it down into the deep layers, order time-limited for 2 weeks will reevaluate. 2. Seborrheic Dermatitis of the scalp. This is multifactorial in origin. Patient to get his hair cut short today, instructed on Selsun shampoo twice a week with bathing. Will hold off applying triamcinolone, it is not red or erythematous at this point in time, and probably more problematic given his ongoing wearing of his hat. 3. Weight gain. This is probably multifactorial, but certainly could be attributed to the risperidone. Patient does not present with any behavioral issues, will evaluate in 2 weeks for another dose reduction. 4. Cold symptoms. Patient does not present with nasal congestion, cough, fever, or change in vital signs. Many of the residents are with viral infection, discussed plan with son, patient presents symptomatically will order symptom medications as indicated. Varsha his , does present with moderate severity of symtpoms, they are in close proximity so high risk for contagion. 5. Advanced care planning. NASEEM ST in place with DNA R and selective treatments. Family goals continue to be supportive of comfort care without unnecessary prolongation of life. Patient currently at highest risk for sequela of a fall, as he is not had any weight loss, recurrent infections, nor progressive behavioral disturbances. Concern continues to be quality of life, counseling provided regarding anticipatory guidance Time Spent: 45 minutes with greater than 50% of this done in counseling regarding goals of care, review of current treatment plan, anticipatory guidance and coordination of care with staff.
== END 2018-11-02 11:01 | disposition home or self-care (01) ==
LOC: PC 11:00
PROVIDERS: ATTEND Nurse Practitioner Adult Health
DX: Z51.5 Encounter for palliative care (principal); F03.90 Unspecified dementia, unspecified severity, without behavioral disturbance, psychotic disturbance, mood disturbance, and anxiety; L30.9 Dermatitis, unspecified; L21.0 Seborrhea capitis; R63.5 Abnormal weight gain; J00 Acute nasopharyngitis [common cold]; N39.498 Other specified urinary incontinence; Z66 Do not resuscitate

== ENCOUNTER 2018-11-18 12:15 | Outpatient (CLI) | payer MEDICARE ==
--- NOTE | 2018-11-18 17:43 | CONSULTATION NOTE ---
Palliative Care Follow Up - Referral Referring Provider: Dr. Kyra Lombardo Time of Visit: [id number] Referral setting: Assisted living (Patient resides at [facility]. Patient is seen in facility secondary is considerable and taxing effort for the patient to leave the facility secondary to his dementia also to facilitate treatment plan.) Referral Reason: Rash/dementia/nasal congestion - Information Sources Records reviewed: Previous records reviewed History/Review of Systems obtained from: Caregiver (clinical staff) Exam limitations: Clinical condition (patient nonverbal with advanced dementia) - History of Present Illness Update Brief HPI Update: This is an 88-year-old gentleman with advanced dementia, who lives at [facility] with his Varsha who also has dementia. Patient presents as nonverbal, but is able to express self and word salad. Is trying to engage in conversation. Patient last seen on 11/02 for significant forearm rash, this is dramatically improved, no erythema, scabbing, but does continue with the dryness. Patient does continue to scratch but less often per staff. Patient also has some residual dryness and lesions on scalp. They are using the Selsun Blue with some success. Patient is quite slow in moving, does often need to be scheduled to go to meals, he has had no falls. He is still able to toilet himself. Patient does present with some nasal congestion today. His lungs are clear though and his vitals stable. Social History - Living Situation Living arrangement: Assisted living Living Situation: With spouse/s.o. Support System: Son Craig oversees patient's medical care, does come to visit every 6-8 weeks. Otherwise staff oversee most of patient's care needs. Medications/Allergies - Medications Home Medications: Ambulatory Orders Medication Instructions Recorded Confirmed Lorazepam [Ativan] 0.5 mg PO Q6H PRN 06/14/17 11/18/18 risperiDONE [RisperDAL] 0.25 mg PO BID 06/14/17 11/18/18 Acetaminophen 500 mg PO Q4H PRN MDD 3000 mg max 09/09/17 11/18/18 per day Ceramides 1,3,6-11 [Cerave] 1 applic TOP BID 11/18/18 11/18/18 Loratadine 10 mg PO ACHS 11/18/18 11/18/18 - Allergies Allergies/Adverse Reactions: Allergies Allergy/AdvReac Type Severity Reaction Status Date / Time No Known Drug Allergies Allergy Verified 08/25/17 18:54 Review of Systems - Constitutional Constitutional: denies: Fever - Ears, Nose & Throat Ears, Nose & Throat: reports: Nasal congestion. denies: Dental decay - Cardiovascular Cardiovascular: reports: Edema (Left ankle) - Respiratory Respiratory: denies: Cough - Gastrointestinal Gastrointestinal: reports: Constipation (unknown; patient still toilets independently often), Good appetite (loves ice cream; can be "bribed" when not wanting to go to meals) - Genitourinary Genitourinary: reports: Incontinence (intermittent) - Musculoskeletal Musculoskeletal: reports: Muscle weakness, Other (gait shuffled) - Integumentary Integumentary: reports: Rash (improved), Pruritis, Dryness - Neurological Neurological: reports: General weakness, Memory problems - Psychiatric Psychiatric: reports: Other (sometimes needs to be cajoled to get to meals etc.) - Hematologic/Lymphatic Hematologic/Lymphatic: denies: Recurrent infections Physical Exam - Vital Signs Temperature: 97.2 C Pulse Rate: 64 Respiratory Rate: 18 O2 Saturation: 96 (ra @ rest) Blood Pressure: 132/84 - Physical Exam General Appearance: positive: No acute distress Eyes Bilateral: positive: Normal inspection ENT: positive: Other (presents with "sniffing" nasal congestion) Neck: positive: No JVD, Trachea midline Cardiovascular: positive: Regular rate & rhythm Respiratory: positive: No respiratory distress, Breath sounds nml, Diminished in bases Abdomen: positive: Soft, Nml bowel sounds Skin: positive: Pallor, Dryness, Rash (erythema improved; still dryness) Extremities: positive: Joint swelling (Left ankle mcfp swelling), Other (able to get from sit to stand; observed eating no choking; very enthusiastic about the ice cream; did go to bathroom door/locked when let in toileted self) Neurologic/Psychiatric: positive: Unintelligible speech (speaking in word salad), Flat affect Palliative Care - POLST Patient has POLST: Yes POLST Status: DNR, Selective Treatment Pain: No pain Tiredness/Fatigue: Comment (staff report patient likes to "nap" often does wake him up) Constipation: Comment (unknown; does not appear bloated or problematic per staff) Performance Status: Needing cueing to go to the dining room, or find room. Often his leaves him around. He can get from sitting to standing, his gait is somewhat unsteady, but has had no falls. Patient is dependent on staff for bathing, patient cannot eat independently. Impression and Recommendations - Palliative Care Impression: This is an 88-year-old gentleman with advanced dementia, presenting as a FAST7B. Patient presented acutely with eczema on his forearms, has responded to the triamcinolone. His behaviors of scratching and itching have decreased. He does have seborrheic dermatitis of the scalp, this too has improved with the Selsun Blue. Palliative care providing support for intermittent quality of life issues, seen patient intermittently for acute issues. Recommendations/Counseling Done: 1. Eczema and forearms. Patient has responded the triamcinolone 0.1% ointment, he has completed 2 weeks of treatment. With this has improved dramatically. Did speak with son, he will send out moisturizing cream CER AVu From [employer], will have them continue to apply to his forearms twice daily. Also requested he have his nails trimmed. Will start on loratidine 10 mg at bedtime for pruritis. 2. Several attic dermatitis of the scalp. This is multifactorial in origin, he did get his hair cut short, they are using Selsun shampoo twice a week with bathing. Does appear to be improving somewhat. 3. Weight gain. Staff have been using ice cream [employer], had originally thought may be attributed to risperidone. 4. Cold symptoms. Patient today presents with nasal congestion, but no cough, fever, stable vital signs. Patient be started on loratadine for pruritus and itching. This should help we will schedule at bedtime secondary to sedation. 5. Advanced care planning. NASEEM ST in place with DNA R and selective treatment. Family goals continue to be supportive of comfort care without unnecessary prolongation of life. Patient remains highest risk for sequela of a fall. He has not had any weight loss recurrent infections nor progressive behavioral disturbances.Update provided to son regarding progress on skin issues. Time Spent: 30 minutes with greater than 50% of this spent in coordination of care with staff regarding meeting patient's care needs, follow-up with son regarding plan of care and obtaining Ceravu cream. Palliative care to follow-up in 6 weeks unless other issues arise.
== END 2018-11-18 12:16 | disposition home or self-care (01) ==
LOC: PC 12:15
PROVIDERS: ATTEND Nurse Practitioner Adult Health
DX: Z51.5 Encounter for palliative care (principal); L30.9 Dermatitis, unspecified; L21.9 Seborrheic dermatitis, unspecified; R63.5 Abnormal weight gain; R09.81 Nasal congestion; L29.9 Pruritus, unspecified; F03.90 Unspecified dementia, unspecified severity, without behavioral disturbance, psychotic disturbance, mood disturbance, and anxiety; Z66 Do not resuscitate; Z79.899 Other long term (current) drug therapy; Z91.81 History of falling

== ENCOUNTER 2018-12-14 01:00 | Outpatient (CLI) | payer MEDICARE | END 2018-12-14 01:01 | disposition critical access hospital (66) | LOC: EMS 01:00 | PROVIDERS: ATTEND Surgery | DX: S09.90XA Unspecified injury of head, initial encounter (principal); W18.30XA Fall on same level, unspecified, initial encounter; S49.92XA Unspecified injury of left shoulder and upper arm, initial encounter; W06.XXXA Fall from bed, initial encounter; Y92.122 Bedroom in nursing home as the place of occurrence of the external cause | CPT/HCPCS: A0425; A0429 ==

== ENCOUNTER 2018-12-14 01:14 | Emergency (ER) | payer MEDICARE ==
--- NOTE | 2018-12-14 02:44 | ED Physician Documentation ---
PD HPI HEAD INJURY - Stated complaint Stated Complaint: GLF - Chief complaint Chief Complaint: General - History obtained from History obtained from: Patient, EMS - History of Present Illness Mechanism of head injury: Fell (He lives at a halfway facility and a thyroid was heard coming from his room. Caregivers went and found him on the floor with some bleeding from the back of the head. EMS was called and they brought him here with the cervical immobilization collar. He was moving his neck around without any apparent pain. He does have history of dementia and baseline confusion so was not able to answer questions about the event. There is no vomiting. He was alert.) Where head injury occurred: Other (nursing facility) Timing - onset: How many minutes ago (30), Today Location of injury: Back Associated symptoms: AMS (baseline so hard to assess from injury). No: Nausea / vomiting Symptoms worsen with: Palpation Contributing factors: No: Anticoagulated Recently seen: Not recently seen Review of Systems Unable to obtain: Dementia (so info from caregivers per EMS) Constitutional: denies: Fever Cardiac: denies: Chest pain / pressure Respiratory: denies: Cough GI: denies: Abdominal Pain, Vomiting Neurologic: reports: Confused (chronic). denies: Focal weakness PD PAST MEDICAL HISTORY - Past Medical History Cardiovascular: High cholesterol, Murmur Respiratory: Sleep apnea Neuro: Dementia : Benign prostate hypertrophy HEENT: Glaucoma Musculoskeletal: Osteoarthritis - Past Surgical History Cardiovascular: AAA - Present Medications Home Medications: Ambulatory Orders Medication Instructions Recorded Confirmed Lorazepam [Ativan] 0.5 mg PO Q6H PRN 06/14/17 11/18/18 risperiDONE [RisperDAL] 0.25 mg PO BID 06/14/17 11/18/18 Acetaminophen 500 mg PO Q4H PRN MDD 3000 mg max 09/09/17 11/18/18 per day Ceramides 1,3,6-11 [Cerave] 1 applic TOP BID 11/18/18 11/18/18 Loratadine 10 mg PO ACHS 11/18/18 11/18/18 - Allergies Allergies/Adverse Reactions: Allergies Allergy/AdvReac Type Severity Reaction Status Date / Time No Known Drug Allergies Allergy Verified 12/14/18 02:52 - Social History Does the pt smoke?: No Smoking Status: Never smoker Does the pt drink ETOH?: No Does the pt have substance abuse?: No - Immunizations Immunizations are current?: Yes - POLST Patient has POLST: Yes PD ED PE NORMAL - Vitals Vital signs reviewed: Yes - General General: No acute distress, Well developed/nourished. No: Alert and oriented X 3 (alert and oriented to person, but not able to answer questions sensically. ) - HEENT HEENT: Dentition benign, Other (back of head with local swelling, tender, and small superficial laceration without active bleeding. ) - Neck Neck: Supple, no meningeal sign, No bony TTP, No adenopathy Results - Vitals Vitals: Vital Signs - 24 hr 12/14/18 12/14/18 12/14/18 01:21 02:31 04:00 Temperature 37.3 C Heart Rate 94 91 82 Respiratory 15 18 16 Rate Blood Pressure 121/74 124/82 H 118/64 O2 Saturation 96 95 96 Oxygen O2 Source Room air - Rads (name of study) head CT Radiology: Prelim report reviewed (no acute process), See rad report cervical CT Radiology: Prelim report reviewed (no fractures), See rad report PD MEDICAL DECISION MAKING - ED course Complexity details: considered differential (Apparent fall with injury to the back of the head. He is not on blood thinners but his dementia precludes a really good evaluation of his symptoms. We will get CT of his head and neck. Otherwise report via EMS is that he is at his baseline mentation and no recent illness. I did not see a need for other testing.), d/w patient Departure - Departure Disposition: 01 Home, Self Care Clinical Impression: Scalp laceration Qualifiers: Encounter type: initial encounter Qualified Code(s): S01.01XA - Laceration without foreign body of scalp, initial encounter Accidental fall Qualifiers: Encounter type: initial encounter Qualified Code(s): W19.XXXA - Unspecified fall, initial encounter Dementia Qualifiers: Dementia type: unspecified type Dementia behavioral disturbance: without behavioral disturbance Qualified Code(s): F03.90 - Unspecified dementia without behavioral disturbance Condition: Stable Record reviewed to determine appropriate education?: Yes Follow-Up: Kyra Lombardo MD [Primary Care Provider] - Comments: Usual medications. The head and neck CT scans are without any acute injury. Cleanse the small laceration with soap and water and apply ointment daily. Recheck if signs of infection.
[2018-12-14] MEDS ORDERED: ACETAMINOPHEN 325 MG TABLET PO STA (02:55)
--- NOTE | 2018-12-14 04:04 | CT Report ---
Reason: fall and struck back of head Procedure Date: 12/14/2018 Accession Number: [id number] / [id number] Procedure: CT - HEAD WO CPT Code: FULL RESULT: EXAM: CT HEAD EXAM DATE: 12/14/2018 03:15 AM. CLINICAL HISTORY: Fall and struck back of head. COMPARISON: None. TECHNIQUE: Multiaxial CT images were obtained from the foramen magnum to the vertex. Reformats: Sagittal and coronal. IV contrast: None. In accordance with CT protocol optimization, one or more of the following dose reduction techniques were utilized for this exam: automated exposure control, adjustment of mA and/or KV based on patient size, or use of iterative reconstructive technique. FINDINGS: Parenchyma: No intraparenchymal hemorrhage. No evidence of mass, midline shift, or CT findings of infarction. Mora-white differentiation is distinct. Extraaxial Spaces: No subdural or epidural collections identified. Ventricles: Moderate dilatation of the lateral ventricles. No mass-effect. No midline shift. Sinuses and Orbits: Imaged paranasal sinuses, orbits, and mastoids show no significant abnormality. Bones: No evidence of fracture or calvarial defect. Other: There is an occipital scalp contusion.. IMPRESSION: No acute intracranial process. RADIA
--- NOTE | 2018-12-14 04:12 | CT Report ---
Reason: fall and struck head; dementia so ? assess neck Procedure Date: 12/14/2018 Accession Number: [id number] / [id number] Procedure: CT - CERVICAL SPINE WO CPT Code: FULL RESULT: EXAM: CT CERVICAL SPINE WITHOUT CONTRAST DATE: 12/14/2018 03:37 AM. HISTORY: Fall with head trauma, dementia COMPARISONS: None. TECHNIQUE: Thin-section axial images were acquired of the cervical spine without contrast. Post-processing: Coronal and sagittal reformats. Other: None. In accordance with CT protocol optimization, one or more of the following dose reduction techniques were utilized for this exam: automated exposure control, adjustment of mA and/or KV based on patient size, or use of iterative reconstructive technique. FINDINGS: Alignment: No scoliosis or spondylolisthesis. Bones: No fracture or bone lesion. Interspace Levels/Facets: C1-C2: Unremarkable. C2-C3: There is severe right facet hypertrophy. There is severe right neural foraminal narrowing. C3-C4: There is moderate bilateral facet hypertrophy. There is moderate bilateral neural foraminal narrowing. C4-C5: Severe right facet hypertrophy. Moderate right and mild left neural foraminal narrowing. C5-C6: Disk height loss and disk osteophyte complex with mild central canal narrowing. Moderate right neural foraminal narrowing. C6-C7: Disk height loss and disk osteophyte complex with mild central canal narrowing. Mild bilateral neural foraminal narrowing. Moderate bilateral facet hypertrophy. 2 mm anterolisthesis of C7 on T1. Mild bilateral neural foraminal narrowing. C7-T1: Unremarkable. Musculature: Normal. No fatty atrophy. Other: The paravertebral and prevertebral soft tissues are unremarkable. The lung apices are clear. IMPRESSION: No evidence of cervical spine fracture. RADIA
[2018-12-14 06:22] VITALS: BP 122/67
== END 2018-12-14 06:22 | disposition home or self-care (01) ==
LOC: EDUNIT# → ED 01:14
DX: S01.01XA Laceration without foreign body of scalp, initial encounter (principal); W18.30XA Fall on same level, unspecified, initial encounter; Y92.122 Bedroom in nursing home as the place of occurrence of the external cause; F03.90 Unspecified dementia, unspecified severity, without behavioral disturbance, psychotic disturbance, mood disturbance, and anxiety
CPT/HCPCS: 70450; 72125; 99283; A9270

== ENCOUNTER 2018-12-14 06:22 | Outpatient (CLI) | payer MEDICARE | END 2018-12-14 06:23 | disposition home or self-care (01) | LOC: EMS 06:22 | PROVIDERS: ATTEND Surgery | DX: R41.0 Disorientation, unspecified (principal); R53.1 Weakness | CPT/HCPCS: A0425; A0428 ==

== ENCOUNTER 2018-12-14 16:26 | Outpatient (CLI) | payer MEDICARE | END 2018-12-14 16:27 | disposition critical access hospital (66) | LOC: EMS 16:26 | PROVIDERS: ATTEND Surgery | DX: S49.92XA Unspecified injury of left shoulder and upper arm, initial encounter (principal); W06.XXXA Fall from bed, initial encounter; Y92.032 Bedroom in apartment as the place of occurrence of the external cause ==

== ENCOUNTER 2018-12-14 16:41 | Inpatient (IN) | payer MEDICARE ==
[2018-12-14] MEDS ORDERED: ACETAMINOPHEN 325 MG TABLET PO STA (16:54)
--- NOTE | 2018-12-14 16:56 | ED Physician Documentation ---
History of Present Illness - Stated complaint Stated Complaint: GLF - Chief complaint Chief Complaint: Trauma Ext - History obtained from History obtained from: EMS - History of Present Illness Timing: Today ([facility] from [facility], reportedly he is fallen several times in the last day or so. He is very demented, no history is available from the patient. Reportedly hit his head at some point now injured his shoulder. He is also noted to be febrile now. He was seen here last night and CT of the head and C-spine were negative, but I do not know if he has hit his head again since. He has fallen again since then.) Review of Systems Unable to obtain: Confused, Dementia PD PAST MEDICAL HISTORY - Past Medical History Cardiovascular: High cholesterol, Murmur Respiratory: Sleep apnea Neuro: Dementia : Benign prostate hypertrophy HEENT: Glaucoma Musculoskeletal: Osteoarthritis - Past Surgical History Cardiovascular: AAA - Present Medications Home Medications: Ambulatory Orders Medication Instructions Recorded Confirmed Lorazepam [Ativan] 0.5 mg PO Q6H PRN 06/14/17 11/18/18 risperiDONE [RisperDAL] 0.25 mg PO BID 06/14/17 11/18/18 Acetaminophen 500 mg PO Q4H PRN MDD 3000 mg max 09/09/17 11/18/18 per day Ceramides 1,3,6-11 [Cerave] 1 applic TOP BID 11/18/18 11/18/18 Loratadine 10 mg PO ACHS 11/18/18 11/18/18 - Allergies Allergies/Adverse Reactions: Allergies Allergy/AdvReac Type Severity Reaction Status Date / Time No Known Drug Allergies Allergy Verified 12/14/18 16:52 - Social History Does the pt smoke?: No Smoking Status: Never smoker Does the pt drink ETOH?: No Does the pt have substance abuse?: No - Immunizations Immunizations are current?: Yes - POLST Patient has POLST: Yes PD ED PE NORMAL - Vitals Vital signs reviewed: Yes - General General: Other (He is alert and follows simple commands but is completely disoriented including he cannot say his name.) - HEENT HEENT: PERRL, EOMI - Neck Neck: Supple, no meningeal sign, No bony TTP - Cardiac Cardiac: RRR, No murmur - Respiratory Respiratory: Other (Mildly diminished at both bases) - Abdomen Abdomen: Soft, Non tender - Back Back: No CVA TTP, No spinal TTP - Derm Derm: Normal color, Warm and dry - Extremities Extremities: Other (There is no obvious deformity of the left shoulder consistent with a high-grade AC separation and cannot move it.) - Neuro Eye Opening: Spontaneous Motor: Obeys Commands Verbal: Inappropriate GCS Score: 13 Results - Vitals Vitals: Vital Signs - 24 hr 12/14/18 12/14/18 12/14/18 16:46 19:21 19:32 Temperature 38.1 C H 37.4 C Heart Rate 76 65 62 Respiratory 14 16 16 Rate Blood Pressure 122/69 89/63 L 105/79 O2 Saturation 93 95 96 Oxygen O2 Source Room air - EKG (time done) 1835 Rate: Rate (enter#) (65) Rhythm: NSR (with occ PAC) Intervals: Prolonged OK, LBBB Computer interpretation: Agree with computer - Labs Labs: Laboratory Tests 12/14/18 12/14/18 12/14/18 17:06 17:08 17:08 WBC 7.3 RBC 4.47 L Hgb 13.7 L Hct 41.8 L MCV 93.6 MCH 30.6 MCHC 32.7 RDW 14.4 Plt Count 222 MPV 7.0 L Neut # (Auto) 4.2 Lymph # (Auto) 1.6 [place] # (Auto) 1.4 H Eos # (Auto) 0.0 Baso # (Auto) 0.1 Absolute Nucleated RBC 0.00 Nucleated RBC % 0.0 Sodium 138 Potassium 4.0 Chloride 101 Carbon Dioxide 26 Anion Gap 11.0 BUN 23 H Creatinine 1.0 Estimated GFR (MDRD) 71 L Glucose 108 H Lactic Acid Calcium 8.8 Total Bilirubin 0.6 AST 27 ALT 18 Alkaline Phosphatase 48 Troponin I 0.12 Total Protein 7.2 Albumin 4.2 Globulin 3.0 Albumin/Globulin Ratio 1.4 Lipase 28 Urine Color Urine Clarity Urine pH Ur Specific [place] Urine Protein Urine Glucose (UA) Urine Ketones Urine Occult Blood Urine Nitrite Urine Bilirubin Urine Urobilinogen Ur Leukocyte Esterase Ur Microscopic Review Urine Culture Comments 12/14/18 12/14/18 17:08 19:00 WBC RBC Hgb Hct MCV MCH MCHC RDW Plt Count MPV Neut # (Auto) Lymph # (Auto) [place] # (Auto) Eos # (Auto) Baso # (Auto) Absolute Nucleated RBC Nucleated RBC % Sodium Potassium Chloride Carbon Dioxide Anion Gap BUN Creatinine Estimated GFR (MDRD) Glucose Lactic Acid 1.3 Calcium Total Bilirubin AST ALT Alkaline Phosphatase Troponin I Total Protein Albumin Globulin Albumin/Globulin Ratio Lipase Urine Color YELLOW Urine Clarity CLEAR Urine pH 6.0 Ur Specific [place] 1.025 Urine Protein TRACE Urine Glucose (UA) NEGATIVE Urine Ketones NEGATIVE Urine Occult Blood TRACE-LYSE Urine Nitrite NEGATIVE Urine Bilirubin NEGATIVE Urine Urobilinogen 0.2 (NORMAL) Ur Leukocyte Esterase NEGATIVE Ur Microscopic Review NOT INDICATED Urine Culture Comments NOT INDICATED - Rads (name of study) CT Head and Cspine Radiology: EMP read contemporaneously (NAD) L shoulder Radiology: EMP read contemporaneously (NAD) 2v chest Radiology: EMP read contemporaneously (Retrocardiac infiltrate) PD MEDICAL DECISION MAKING - ED course ED course: This is an 88-year-old gentleman who presents from assisted living with frequent falls. Now he is noted to be febrile. His shoulder seems to be the only site of injury, but the x-ray is negative there. He is found to have pneumonia. He was cultured up and given Rocephin and Zithromax IV. I discussed this with the Son by phone who is agreeable with the plan, notes that he has had an old shoulder injury and the bump on his shoulder is not acute. He did have a single low BP here to 80/60, but not corroborated on subsequent readings. Departure - Departure Disposition: 66 [facility] DC/Xfer Clinical Impression: Pneumonia Qualifiers: Pneumonia type: due to unspecified organism Laterality: left Lung location: lower lobe of lung Qualified Code(s): J18.1 - Lobar pneumonia, unspecified organism Fall Qualifiers: Encounter type: initial encounter Qualified Code(s): W19.XXXA - Unspecified fall, initial encounter Head injury Qualifiers: Encounter type: initial encounter Qualified Code(s): S09.90XA - Unspecified injury of head, initial encounter Dementia Qualifiers: Dementia type: unspecified type Dementia behavioral disturbance: without behavioral disturbance Qualified Code(s): F03.90 - Unspecified dementia without behavioral disturbance Accidental fall Qualifiers: Encounter type: initial encounter Qualified Code(s): W19.XXXA - Unspecified fall, initial encounter Shoulder contusion Qualifiers: Encounter type: initial encounter Laterality: left Qualified Code(s): S40.012A - Contusion of left shoulder, initial encounter
[2018-12-14 17:16] LABS: BASOPHILS # (AUTO) 0.1 10^3/uL (0.0-0.1); BASOPHILS % (AUTO) 0.8 %; EOSINOPHILS % (AUTO) 0.3 %; HGB - HEMOGLOBIN 13.7 g/dL (14.0-18.0); LYMPHOCYTES # (AUTO) 1.6 10^3/uL (1.5-3.5); LYMPHOCYTES % (AUTO) 21.5 %; MEAN CORPUSCULAR HEMOGLOBIN 30.6 pg (27.0-31.0); MEAN CORPUSCULAR HGB CONC 32.7 g/dL (32.0-36.0); MEAN CORPUSCULAR VOLUME 93.6 fL (80.0-94.0); MONOCYTES # (AUTO) 1.4 10^3/uL (0.0-1.0); MONOCYTES % (AUTO) 19.7 %; NEUTROPHILS # (AUTO) 4.2 10^3/uL (1.5-6.6); NEUTROPHILS % (AUTO) 57.7 %; PLT - PLATELET COUNT 222 10^3/uL (130-450); RED BLOOD COUNT 4.47 10^6/uL (4.70-6.10); RED CELL DISTRIBUTION WIDTH 14.4 % (12.0-15.0); WHITE BLOOD COUNT 7.3 x10^3/uL (4.8-10.8)
[2018-12-14 17:31] LABS: ALBUMIN 4.2 g/dL (3.2-5.5); ALBUMIN/GLOBULIN RATIO 1.4 (1.0-2.2); BILIRUBIN,TOTAL 0.6 mg/dL (0.2-1.0); CALCIUM 8.8 mg/dL (8.5-10.3); TOTAL PROTEIN 7.2 g/dL (6.7-8.2)
--- NOTE | 2018-12-14 18:35 | CT Report ---
Reason: head inj Procedure Date: 12/14/2018 Accession Number: [id number] / [id number] Procedure: CT - HEAD WO CPT Code: FULL RESULT: EXAM: CT HEAD EXAM DATE: 12/14/2018 05:59 PM. CLINICAL HISTORY: Trauma, pain. COMPARISON: HEAD W/O 12/14/2018 3:15 AM. TECHNIQUE: Multiaxial CT images were obtained from the foramen magnum to the vertex. Reformats: Coronal. IV contrast: None. In accordance with CT protocol optimization, one or more of the following dose reduction techniques were utilized for this exam: automated exposure control, adjustment of mA and/or KV based on patient size, or use of iterative reconstructive technique. FINDINGS: Parenchyma: No intraparenchymal hemorrhage. No evidence of mass, midline shift, or CT findings of acute infarction. Mora-white differentiation is distinct. Diffuse chronic microangiopathic white matter changes. Extraaxial Spaces: Normal for age. No subdural or epidural collections. Ventricles: The ventricles and cortical sulci are enlarged, consistent with age-related tissue loss. Sinuses and orbits: Imaged paranasal sinuses, orbits, and mastoids show no significant abnormality. Bones: Unremarkable. Other: None. IMPRESSION: Generalized age-related cortical atrophic changes without evidence of acute intracranial abnormality. RADIA
--- NOTE | 2018-12-14 18:40 | CT Report ---
Reason: head inj Procedure Date: 12/14/2018 Accession Number: [id number] / [id number] Procedure: CT - CERVICAL SPINE WO CPT Code: FULL RESULT: EXAM: CT CERVICAL SPINE WITHOUT CONTRAST DATE: 12/14/2018 05:59 PM. HISTORY: Trauma, pain. COMPARISONS: CERVICAL SPINE W/O 12/14/2018 3:24 AM. TECHNIQUE: Thin-section axial images were acquired of the cervical spine without contrast. Post-processing: Coronal and sagittal reformats. Other: None. In accordance with CT protocol optimization, one or more of the following dose reduction techniques were utilized for this exam: automated exposure control, adjustment of mA and/or KV based on patient size, or use of iterative reconstructive technique. FINDINGS: Alignment: Mild scoliosis. No listhesis. Bones: No fracture or bone lesion. Interspace Levels/Facets: Disk space narrowing at C6-C7. Mild narrowing at C5-C6. Other disk spaces preserved. Moderate generalized degenerative changes, right more than left. Musculature: Normal. No fatty atrophy. Other: The paravertebral and prevertebral soft tissues are unremarkable. The lung apices are clear. IMPRESSION: Chronic findings. No acute disease. RADIA
--- NOTE | 2018-12-14 19:00 | XRAY Report ---
Reason: fever Procedure Date: 12/14/2018 Accession Number: [id number] Procedure: XR - Chest 2 View X-Ray CPT Code: 56454 FULL RESULT: EXAM: CHEST RADIOGRAPHY EXAM DATE: 12/14/2018 06:33 PM. CLINICAL HISTORY: Fever. COMPARISON: CERVICAL SPINE W/O 12/14/2018 5:58 PM. TECHNIQUE: 2 views. FINDINGS: Lungs/Pleura: There is increased opacity within the posterior chest on lateral view. No definite correlate on frontal view there is no evidence of pneumothorax. Mediastinum: There is cardiomegaly. There is thoracic aortic tortuosity. Other: None. IMPRESSION: 1. There is mild cardiomegaly. There is thoracic aortic tortuosity. 2. There is increased opacity within the posterior chest on lateral view. Differential considerations include lower lobe infiltrate, focal pleural fluid, mass, or artifact secondary to overlapping structures. 3. No evidence of pneumothorax. RADIA
--- NOTE | 2018-12-14 19:04 | XRAY Report ---
Reason: shoulder inj Procedure Date: 12/14/2018 Accession Number: [id number] / [id number] Procedure: XR - Shoulder 3 View LT CPT Code: FULL RESULT: EXAM: LEFT SHOULDER RADIOGRAPHY EXAM DATE: 12/14/2018 06:33 PM. CLINICAL HISTORY: Shoulder injury COMPARISON: None. TECHNIQUE: 3 views. FINDINGS: Bones: No fracture or focal bony lesion. Joints: No evidence of dislocation. Soft Tissues: No unexpected soft tissue findings. IMPRESSION: No evidence of fracture or dislocation. RADIA
[2018-12-14] MEDS ORDERED: cefTRIAXone 1 GM in SODIUM CHLORIDE 0.9% MINIBAG 100 ML IV STA (19:11)
[2018-12-14] MEDS ORDERED: AZITHROMYCIN INJ 500 MG in SODIUM CHLORIDE 0.9% 250 ML IV STA (19:11)
[2018-12-14 19:19] LABS: BILIRUBIN,URINE NEGATIVE (NEGATIVE); GLUCOSE, URINE (UA) NEGATIVE (NEGATIVE); KETONES,URINE (UA) NEGATIVE (NEGATIVE); LEUKOCYTE ESTERASE, URINE NEGATIVE (NEGATIVE); NITRITE,URINE NEGATIVE (NEGATIVE); OCCULT BLOOD,URINE TRACE-LYSE (NEGATIVE); PROTEIN,URINE TRACE mg/dL (NEGATIVE); UROBILINOGEN,URINE 0.2 (NORMAL) E.U./dL (NORMAL)
[2018-12-14 19:22] LABS: CLARITY,URINE CLEAR (CLEAR)
[2018-12-14] MEDS ORDERED: LACTATED RINGERS 3,500 ML IV STA (19:22)
[2018-12-14] MEDS ORDERED: ACETAMINOPHEN 325 MG TABLET PO PRN (20:05)
[2018-12-14] MEDS ORDERED: SODIUM CHLORIDE FLUSH 0.9% 10 ML SYRINGE IVP PRN (20:05)
[2018-12-14] MEDS ORDERED: OSELTAMIVIR 75 MG CAPSULE PO STA (20:21)
[2018-12-14] MEDS ORDERED: OSELTAMIVIR 75 MG CAPSULE PO SCH (21:00)
[2018-12-14] MEDS: SODIUM CHLORIDE 0.9% 1,000 ML IV SCH (21:51)
[2018-12-14] MEDS: HEPARIN 5,000 UNIT/ML VIAL SUBQ SCH (21:52)
[2018-12-15] MEDS: SODIUM CHLORIDE FLUSH 0.9% 10 ML SYRINGE IVP SCH ×3 (00:32→19:20)
--- NOTE | 2018-12-15 00:34 | HISTORY & PHYSICAL EXAMINATION ---
Chief Complaint - Chief Complaint Chief Complaint: frequent falls History of Present Illness - Admitted From Admitted From:: [facility] ED - History Obtained From Records Reviewed: yes History obtained from: ED staff Exam Limitations: dementia - History of Present Illness HPI Comment/Other: Patient seen on 12/14/18 at 1950pm This history is very limited and mainly obtained from the ED staff. The patient has severe dementia and unable to communicate. He presents from a Care Home Facility. I have attempted to contact the facility with no success. I left my contact for a call back. It is reported that the patient has been having frequent falls over the past day. It was reported that he hit his head. While being assessed for the falls in the ED, he was found to be febrile and had a transient drop in his blood pressure. His work up then included CXR which showed some opacities and his influenza test was positive. As a result he is being admitted for further treatment. He would stir and open his eyes to verbal and tactile stimuli, then fall back to sleep. He does not appear to be in any distress. History - Past Medical History Cardiovascular: reports: High cholesterol, Murmur Respiratory: reports: Sleep apnea Neuro: reports: Dementia : reports: Benign prostate hypertrophy HEENT: reports: Glaucoma Musculoskeletal: reports: Osteoarthritis - Past Surgical History Cardiovascular: reports: AAA - POLST Patient has POLST: Yes POLST Status: DNR Meds/Allgy - Home Medications Home Medications: Ambulatory Orders Medication Instructions Recorded Confirmed Lorazepam [Ativan] 0.5 mg PO Q6H PRN 06/14/17 11/18/18 risperiDONE [RisperDAL] 0.25 mg PO BID 06/14/17 11/18/18 Acetaminophen 500 mg PO Q4H PRN MDD 3000 mg max 09/09/17 11/18/18 per day Ceramides 1,3,6-11 [Cerave] 1 applic TOP BID 11/18/18 11/18/18 Loratadine 10 mg PO ACHS 11/18/18 11/18/18 - Allergies Allergies/Adverse Reactions: Allergies Allergy/AdvReac Type Severity Reaction Status Date / Time No Known Drug Allergies Allergy Verified 12/14/18 16:52 Review of Systems - Other Findings Other Findings: ROS is limited because of the patient's severe dementia Exam - Vital Signs Vital Signs: Vital Signs x48h Temp Pulse Pulse Resp BP BP Pulse Ox 12/14/18 21:09 36.8 C 73 16 115/81 H 92 12/14/18 20:42 37.5 C 67 16 110/77 96 12/14/18 20:11 58 L 17 102/71 97 12/14/18 19:32 62 16 105/79 96 12/14/18 19:21 37.4 C 65 16 89/63 L 95 12/14/18 16:46 38.1 C H 76 14 122/69 93 - Physical Exam General Appearance: positive: No acute distress, Other (sleepy but arousable) Eyes Bilateral: positive: Normal inspection ENT: positive: ENT inspection nml, No signs of dehydration Neck: positive: Nml inspection, No JVD, Trachea midline Respiratory: positive: Chest non-tender, No respiratory distress, Breath sounds nml. negative: Wheezes, Rales, Rhonchi Cardiovascular: positive: Regular rate & rhythm Abdomen: positive: Non-tender, Nml bowel sounds, No distention Back: positive: Nml inspection Skin: positive: Other (redness on bilateral lower extremities) Extremities: positive: Pedal edema (on left leg) Neurologic/Psychiatric: positive: Disoriented to person, Disoriented to place, Disoriented to time Sepsis Event Note (H) - Evaluation Current Stage of Sepsis: Sepsis Possible source of Sepsis: positive: Pulmonary Conclusion/Plan - Problem List (1) Pneumonia Conclusion/Plan: Patient on Rocephin and azithromycin Will continue Qualifiers: Pneumonia type: due to unspecified organism Laterality: left Lung location: lower lobe of lung Qualified Code(s): J18.1 - Lobar pneumonia, unspecified organism (2) Influenza A Conclusion/Plan: Tamiflu 75mg po bid (3) Dementia Conclusion/Plan: On risperdal and ativan Qualifiers: Dementia type: unspecified type Dementia behavioral disturbance: without behavioral disturbance Qualified Code(s): F03.90 - Unspecified dementia without behavioral disturbance (4) Frequent falls Conclusion/Plan: CT head and neck as well as Xray of chest and shoulder negative for any injury - Lab Results Fish Bones: 12/14/18 17:08 12/14/18 17:06 Core Measures - Anticipated LOS I expect patient to be DC'd or transferred within 96 hours.: Yes - DVT/VTE - Prophylaxis VTE/DVT Device ordered at admit?: Yes VTE/DVT Prophylaxis med ordered at admit?: Yes
[2018-12-15] MEDS: SODIUM CHLORIDE 0.9% 1,000 ML IV SCH (06:33)
[2018-12-15 08:33] LABS: BASOPHILS # (AUTO) 0.1 10^3/uL (0.0-0.1); BASOPHILS % (AUTO) 1.5 %; EOSINOPHILS # (AUTO) 0.1 10^3/uL (0.0-0.7); EOSINOPHILS % (AUTO) 0.9 %; HGB - HEMOGLOBIN 12.7 g/dL (14.0-18.0); LYMPHOCYTES # (AUTO) 1.6 10^3/uL (1.5-3.5); LYMPHOCYTES % (AUTO) 25.6 %; MEAN CORPUSCULAR HEMOGLOBIN 31.1 pg (27.0-31.0); MEAN CORPUSCULAR HGB CONC 33.5 g/dL (32.0-36.0); MEAN CORPUSCULAR VOLUME 92.9 fL (80.0-94.0); MEAN PLATELET VOLUME 6.7 fL (7.4-11.4); MONOCYTES # (AUTO) 1.2 10^3/uL (0.0-1.0); NEUTROPHILS # (AUTO) 3.3 10^3/uL (1.5-6.6); PLT - PLATELET COUNT 183 10^3/uL (130-450); RED BLOOD COUNT 4.09 10^6/uL (4.70-6.10); RED CELL DISTRIBUTION WIDTH 14.5 % (12.0-15.0); WHITE BLOOD COUNT 6.2 x10^3/uL (4.8-10.8)
[2018-12-15] MEDS: HEPARIN 5,000 UNIT/ML VIAL SUBQ SCH ×2 (08:45→20:07)
[2018-12-15] MEDS: OSELTAMIVIR 75 MG CAPSULE PO SCH ×2 (08:45→20:16)
[2018-12-15] MEDS: POLYETHYLENE GLYCOL 3350 17 GM PACKET PO SCH (08:48)
[2018-12-15] MEDS ORDERED: MUPIROCIN 2% OINT 22 GM TUBE TOP SCH (09:00)
[2018-12-15 09:01] LABS: CALCIUM 7.7 mg/dL (8.5-10.3); CREATININE 0.8 mg/dL (0.6-1.2); MAGNESIUM 1.8 mg/dL (1.7-2.8)
--- NOTE | 2018-12-15 14:31 | PROVIDER PROGRESS NOTE ---
Subjective - Prog Note Date Prog Note Date: 12/15/18 - Subjective Pt reports feeling: Improved Subjective: pt is comfortable sitting in chair to eat. Pt stare to me and but he did not answer any questions from me and other staff Current Medications - Current Medications Current Medications: Active Medications Acetaminophen (Tylenol) 650 mg PO Q4HR PRN PRN Reason: Pain 1 to 4 Azithromycin (Zithromax) 250 mg PO Q24H [facility] Stop: 12/18/18 22:00 Heparin Sodium (Porcine) () 5,000 unit SUBQ BID [facility] Last Admin: 12/15/18 08:45 Dose: 5,000 unit Ceftriaxone Sodium 1 gm/ (Sodium Chloride) 100 mls @ 200 mls/hr IV Q24H ALESSIA Loratadine (Claritin) 10 mg PO QPM ALESSIA Lorazepam (Ativan) 0.5 mg PO Q6H PRN PRN Reason: Anxiety Oseltamivir Phosphate (Tamiflu) 75 mg PO BID [facility] Stop: 12/19/18 09:01 Last Admin: 12/15/18 08:45 Dose: 75 mg Patient Own Med ( Ceramides 1,3,6-11 [ Cerave Lotion]) 1 each TOP BID [facility] Polyethylene Glycol (Miralax) 17 gm PO DAILY [facility] Last Admin: 12/15/18 08:48 Dose: 17 gm Risperidone (Risperdal) 0.25 mg PO BID [facility] Sodium Chloride (Normal Saline Flush 0.9%) 10 ml IVP PRN PRN PRN Reason: NEEDED PER PROVIDER ORDERS Sodium Chloride (Normal Saline Flush 0.9%) 10 ml IVP 0100,0900,1700 [facility] Last Admin: 12/15/18 08:49 Dose: Not Given Lorazepam [Ativan] 0.5 mg PO Q6H PRN 06/14/17 risperiDONE [RisperDAL] 0.25 mg PO BID 06/14/17 Acetaminophen 500 mg PO Q4H PRN MDD 3000 mg max per day 09/09/17 Ceramides 1,3,6-11 [Cerave] 1 applic TOP BID 11/18/18 Loratadine 10 mg PO QPM 11/18/18 Objective - Vital Signs/Intake & Output Reviewed Vital Signs: Yes Vital Signs: Vital Signs x48h Temp Pulse Resp BP Pulse Ox 12/15/18 11:41 36.5 C 63 18 104/70 95 03/14/19 07:28 36.6 C 67 20 123/82 H 95 Intake & Output: Intake & Output 12/12/18 12/13/18 12/14/18 12/15/18 23:59 23:59 23:59 23:59 Intake Total 3850 2330 Balance 3850 2330 - Objective General Appearance: positive: No acute distress, Alert. negative: Lethargic Eyes Bilateral: positive: Normal inspection, PERRL, No lid inflammation, Conjunctivae nml ENT: positive: ENT inspection nml, Pharynx nml, No signs of dehydration. negative: Purulent nasal drainage, Pharyngeal erythema, Oral lesions Neck: positive: Nml inspection, Thyroid nml, No JVD, Trachea midline. negative: Thyromegaly, Lymphadenopathy (R), Lymphadenopathy (L), Stiff neck, Swelling/bruising, Tracheal deviation Respiratory: positive: Chest non-tender, No respiratory distress. negative: Wheezes, Rales, Rhonchi Cardiovascular: positive: Regular rate & rhythm, No murmur, No gallop. negative: Irregularly irregular, Extrasystoles, Tachycardia, Bradycardia, JVD present, Systolic murmur, Diastolic murmur Peripheral Pulses: 2+ Radial (R), 2+ Radial (L), 2+ Dorsalis pedis (R), 2+ Dorsalis pedis (L) Abdomen: positive: Non-tender, No organomegaly, Nml bowel sounds, No distention. negative: Tenderness, Guarding, Rebound Back: positive: Nml inspection. negative: CVA tenderness (R), CVA tenderness (L) Skin: positive: Color nml, No rash, Warm, Dry. negative: Cyanosis, Diaphoresis, Pallor Extremities: positive: Non-tender, Nml appearance. negative: Calf tenderness, Joint swelling, Corrina's sign/cords Neurologic/Psychiatric: positive: Sensation nml, Mood/affect nml. negative: Weakness, Sensory loss, Facial droop, Slurred/abnml speech, Depressed mood/affect - Lab Results Fish Bones: 12/15/18 08:25 12/15/18 08:25 Other Labs: Lab Results x24hrs 12/15/18 12/15/18 12/15/18 Range/Units 08:25 08:25 08:25 WBC 6.2 (4.8-10.8) x10^3/uL RBC 4.09 L (4.70-6.10) 10^6/uL Hgb 12.7 L (14.0-18.0) g/dL Hct 38.0 L (42.0-52.0) % MCV 92.9 (80.0-94.0) fL MCH 31.1 H (27.0-31.0) pg MCHC 33.5 (32.0-36.0) g/dL RDW 14.5 (12.0-15.0) % Plt Count 183 (130-450) 10^3/uL MPV 6.7 L (7.4-11.4) fL Neut # (Auto) 3.3 (1.5-6.6) 10^3/uL Lymph # (Auto) 1.6 (1.5-3.5) 10^3/uL [place] # (Auto) 1.2 H (0.0-1.0) 10^3/uL Eos # (Auto) 0.1 (0.0-0.7) 10^3/uL Baso # (Auto) 0.1 (0.0-0.1) 10^3/uL Absolute Nucleated RBC 0.00 x10^3/uL Nucleated RBC % 0.0 /100WBC Sodium 130 L (135-145) mmol/L Potassium 3.5 (3.5-5.0) mmol/L Chloride 100 L (101-111) mmol/L Carbon Dioxide 23 (21-32) mmol/L Anion Gap 7.0 (6-13) BUN 18 (6-20) mg/dL Creatinine 0.8 (0.6-1.2) mg/dL Estimated GFR (MDRD) 91 (>89) Glucose 96 (70-100) mg/dL Lactic Acid (0.5-2.2) mmol/L Calcium 7.7 L (8.5-10.3) mg/dL Magnesium 1.8 (1.7-2.8) mg/dL Total Bilirubin (0.2-1.0) mg/dL AST (10-42) IU/L ALT (10-60) IU/L Alkaline Phosphatase (42-121) IU/L Troponin I 0.13 (<0.49) ng/mL Total Protein (6.7-8.2) g/dL Albumin (3.2-5.5) g/dL Globulin (2.1-4.2) g/dL Albumin/Globulin Ratio (1.0-2.2) Lipase (22-51) U/L Urine Color Urine Clarity (CLEAR) Urine pH (5.0-7.5) PH Ur Specific [place] (1.002-1.030) Urine Protein (NEGATIVE) mg/dL Urine Glucose (UA) (NEGATIVE) mg/dL Urine Ketones (NEGATIVE) mg/dL Urine Occult Blood (NEGATIVE) Urine Nitrite (NEGATIVE) Urine Bilirubin (NEGATIVE) Urine Urobilinogen (NORMAL) E.U./dL Ur Leukocyte Esterase (NEGATIVE) Ur Microscopic Review Urine Culture Comments Influenza A (Rapid) (Negative) Influenza B (Rapid) (Negative) 12/15/18 12/14/18 12/14/18 Range/Units 04:30 23:00 19:35 WBC (4.8-10.8) x10^3/uL RBC (4.70-6.10) 10^6/uL Hgb (14.0-18.0) g/dL Hct (42.0-52.0) % MCV (80.0-94.0) fL MCH (27.0-31.0) pg MCHC (32.0-36.0) g/dL RDW (12.0-15.0) % Plt Count (130-450) 10^3/uL MPV (7.4-11.4) fL Neut # (Auto) (1.5-6.6) 10^3/uL Lymph # (Auto) (1.5-3.5) 10^3/uL [place] # (Auto) (0.0-1.0) 10^3/uL Eos # (Auto) (0.0-0.7) 10^3/uL Baso # (Auto) (0.0-0.1) 10^3/uL Absolute Nucleated RBC x10^3/uL Nucleated RBC % /100WBC Sodium (135-145) mmol/L Potassium (3.5-5.0) mmol/L Chloride (101-111) mmol/L Carbon Dioxide (21-32) mmol/L Anion Gap (6-13) BUN (6-20) mg/dL Creatinine (0.6-1.2) mg/dL Estimated GFR (MDRD) (>89) Glucose (70-100) mg/dL Lactic Acid (0.5-2.2) mmol/L Calcium (8.5-10.3) mg/dL Magnesium (1.7-2.8) mg/dL Total Bilirubin (0.2-1.0) mg/dL AST (10-42) IU/L ALT (10-60) IU/L Alkaline Phosphatase (42-121) IU/L Troponin I 0.13 0.12 (<0.49) ng/mL Total Protein (6.7-8.2) g/dL Albumin (3.2-5.5) g/dL Globulin (2.1-4.2) g/dL Albumin/Globulin Ratio (1.0-2.2) Lipase (22-51) U/L Urine Color Urine Clarity (CLEAR) Urine pH (5.0-7.5) PH Ur Specific Carmine (1.002-1.030) Urine Protein (NEGATIVE) mg/dL Urine Glucose (UA) (NEGATIVE) mg/dL Urine Ketones (NEGATIVE) mg/dL Urine Occult Blood (NEGATIVE) Urine Nitrite (NEGATIVE) Urine Bilirubin (NEGATIVE) Urine Urobilinogen (NORMAL) E.U./dL Ur Leukocyte Esterase (NEGATIVE) Ur Microscopic Review Urine Culture Comments Influenza A (Rapid) POSITIVE H (Negative) Influenza B (Rapid) Negative (Negative) 12/14/18 12/14/18 12/14/18 Range/Units 19:00 17:08 17:08 WBC (4.8-10.8) x10^3/uL RBC (4.70-6.10) 10^6/uL Hgb (14.0-18.0) g/dL Hct (42.0-52.0) % MCV (80.0-94.0) fL MCH (27.0-31.0) pg MCHC (32.0-36.0) g/dL RDW (12.0-15.0) % Plt Count (130-450) 10^3/uL MPV (7.4-11.4) fL Neut # (Auto) (1.5-6.6) 10^3/uL Lymph # (Auto) (1.5-3.5) 10^3/uL [place] # (Auto) (0.0-1.0) 10^3/uL Eos # (Auto) (0.0-0.7) 10^3/uL Baso # (Auto) (0.0-0.1) 10^3/uL Absolute Nucleated RBC x10^3/uL Nucleated RBC % /100WBC Sodium (135-145) mmol/L Potassium (3.5-5.0) mmol/L Chloride (101-111) mmol/L Carbon Dioxide (21-32) mmol/L Anion Gap (6-13) BUN (6-20) mg/dL Creatinine (0.6-1.2) mg/dL Estimated GFR (MDRD) (>89) Glucose (70-100) mg/dL Lactic Acid 1.3 (0.5-2.2) mmol/L Calcium (8.5-10.3) mg/dL Magnesium (1.7-2.8) mg/dL Total Bilirubin (0.2-1.0) mg/dL AST (10-42) IU/L ALT (10-60) IU/L Alkaline Phosphatase (42-121) IU/L Troponin I 0.12 (<0.49) ng/mL Total Protein (6.7-8.2) g/dL Albumin (3.2-5.5) g/dL Globulin (2.1-4.2) g/dL Albumin/Globulin Ratio (1.0-2.2) Lipase (22-51) U/L Urine Color YELLOW Urine Clarity CLEAR (CLEAR) Urine pH 6.0 (5.0-7.5) PH Ur Specific [place] 1.025 (1.002-1.030) Urine Protein TRACE (NEGATIVE) mg/dL Urine Glucose (UA) NEGATIVE (NEGATIVE) mg/dL Urine Ketones NEGATIVE (NEGATIVE) mg/dL Urine Occult Blood TRACE-LYSE (NEGATIVE) Urine Nitrite NEGATIVE (NEGATIVE) Urine Bilirubin NEGATIVE (NEGATIVE) Urine Urobilinogen 0.2 (NORMAL) (NORMAL) E.U./dL Ur Leukocyte Esterase NEGATIVE (NEGATIVE) Ur Microscopic Review NOT INDICATED Urine Culture Comments NOT INDICATED Influenza A (Rapid) (Negative) Influenza B (Rapid) (Negative) 12/14/18 12/14/18 Range/Units 17:08 17:06 WBC 7.3 (4.8-10.8) x10^3/uL RBC 4.47 L (4.70-6.10) 10^6/uL Hgb 13.7 L (14.0-18.0) g/dL Hct 41.8 L (42.0-52.0) % MCV 93.6 (80.0-94.0) fL MCH 30.6 (27.0-31.0) pg MCHC 32.7 (32.0-36.0) g/dL RDW 14.4 (12.0-15.0) % Plt Count 222 (130-450) 10^3/uL MPV 7.0 L (7.4-11.4) fL Neut # (Auto) 4.2 (1.5-6.6) 10^3/uL Lymph # (Auto) 1.6 (1.5-3.5) 10^3/uL [place] # (Auto) 1.4 H (0.0-1.0) 10^3/uL Eos # (Auto) 0.0 (0.0-0.7) 10^3/uL Baso # (Auto) 0.1 (0.0-0.1) 10^3/uL Absolute Nucleated RBC 0.00 x10^3/uL Nucleated RBC % 0.0 /100WBC Sodium 138 (135-145) mmol/L Potassium 4.0 (3.5-5.0) mmol/L Chloride 101 (101-111) mmol/L Carbon Dioxide 26 (21-32) mmol/L Anion Gap 11.0 (6-13) BUN 23 H (6-20) mg/dL Creatinine 1.0 (0.6-1.2) mg/dL Estimated GFR (MDRD) 71 L (>89) Glucose 108 H (70-100) mg/dL Lactic Acid (0.5-2.2) mmol/L Calcium 8.8 (8.5-10.3) mg/dL Magnesium (1.7-2.8) mg/dL Total Bilirubin 0.6 (0.2-1.0) mg/dL AST 27 (10-42) IU/L ALT 18 (10-60) IU/L Alkaline Phosphatase 48 (42-121) IU/L Troponin I (<0.49) ng/mL Total Protein 7.2 (6.7-8.2) g/dL Albumin 4.2 (3.2-5.5) g/dL Globulin 3.0 (2.1-4.2) g/dL Albumin/Globulin Ratio 1.4 (1.0-2.2) Lipase 28 (22-51) U/L Urine Color Urine Clarity (CLEAR) Urine pH (5.0-7.5) PH Ur Specific [place] (1.002-1.030) Urine Protein (NEGATIVE) mg/dL Urine Glucose (UA) (NEGATIVE) mg/dL Urine Ketones (NEGATIVE) mg/dL Urine Occult Blood (NEGATIVE) Urine Nitrite (NEGATIVE) Urine Bilirubin (NEGATIVE) Urine Urobilinogen (NORMAL) E.U./dL Ur Leukocyte Esterase (NEGATIVE) Ur Microscopic Review Urine Culture Comments Influenza A (Rapid) (Negative) Influenza B (Rapid) (Negative) ABX Reporting Has patient been on IV antibiotics over the past 48 hours?: Yes Sepsis Event Note (H) - Evaluation Current Stage of Sepsis: Sepsis Possible source of Sepsis: positive: Pulmonary Assessment/Plan - Problem List (1) Pneumonia Impression: 12/15. great improved. 96% sats on room air. continue Rocephin and azithromycin (2) Influenza A continue Tamiflu (3) Dementia stable as his baseline, per pt's palliative care report continue risperdal and ativan (4) Frequent falls CT head and neck as well as Xray of chest and shoulder negative for any injury continue support, fall precaution, and pain control. (5) hyponatremia it seems hypovulum hyponatremia continue IVF of NS lab monitor Qualifiers: Pneumonia type: due to unspecified organism Laterality: left Lung locati on: lower lobe of lung Qualified Code(s): J18.1 - Lobar pneumonia, unspecified organism
[2018-12-15] MEDS: LORazepam 1 MG TABLET PO PRN (17:38)
[2018-12-15] MEDS ORDERED: SODIUM CHLORIDE 0.9% 1,000 ML IV SCH (18:00)
[2018-12-15] MEDS ORDERED: HALOPERIDOL 5 MG/ML VIAL IVP PRN (19:15)
[2018-12-15] MEDS: CERAMIDES TOP SCH (19:55)
[2018-12-15] MEDS ORDERED: cefTRIAXone 1 GM in SODIUM CHLORIDE 0.9% MINIBAG 100 ML IV SCH (20:00)
[2018-12-15] MEDS: risperiDONE 0.25 MG TABLET PO SCH (20:16)
[2018-12-15] MEDS ORDERED: AZITHROMYCIN 250 MG TABLET PO SCH (21:00)
[2018-12-15] MEDS ORDERED: LORATADINE 10 MG TABLET PO SCH (21:00)
[2018-12-16] MEDS: SODIUM CHLORIDE FLUSH 0.9% 10 ML SYRINGE IVP SCH ×2 (01:00→08:29)
[2018-12-16] MEDS: LORazepam 1 MG TABLET PO PRN ×2 (01:20→08:28)
[2018-12-16 06:06] LABS: BASOPHILS # (AUTO) 0.1 10^3/uL (0.0-0.1); EOSINOPHILS # (AUTO) 0.1 10^3/uL (0.0-0.7); EOSINOPHILS % (AUTO) 1.2 %; LYMPHOCYTES # (AUTO) 1.7 10^3/uL (1.5-3.5); LYMPHOCYTES % (AUTO) 24.9 %; MEAN CORPUSCULAR HEMOGLOBIN 30.8 pg (27.0-31.0); MEAN CORPUSCULAR HGB CONC 33.2 g/dL (32.0-36.0); MEAN CORPUSCULAR VOLUME 92.9 fL (80.0-94.0); MEAN PLATELET VOLUME 7.3 fL (7.4-11.4); MONOCYTES # (AUTO) 1.1 10^3/uL (0.0-1.0); MONOCYTES % (AUTO) 16.7 %; NEUTROPHILS # (AUTO) 3.7 10^3/uL (1.5-6.6); NEUTROPHILS % (AUTO) 56.2 %; PLT - PLATELET COUNT 185 10^3/uL (130-450); RED BLOOD COUNT 4.21 10^6/uL (4.70-6.10); RED CELL DISTRIBUTION WIDTH 14.5 % (12.0-15.0); WHITE BLOOD COUNT 6.7 x10^3/uL (4.8-10.8)
[2018-12-16 06:19] LABS: CALCIUM 8.3 mg/dL (8.5-10.3); CREATININE 0.8 mg/dL (0.6-1.2)
--- NOTE | 2018-12-16 08:20 | XRAY Report ---
Reason: SOB Procedure Date: 12/16/2018 Accession Number: [id number] / [id number] Procedure: XR - Chest 1 View X-Ray CPT Code: 76697 FULL RESULT: EXAM: CHEST RADIOGRAPHY EXAM DATE: 12/16/2018 08:03 AM. CLINICAL HISTORY: Shortness of breath. COMPARISON: CHEST 2 VIEW 12/14/2018 5:52 PM. TECHNIQUE: 1 view. FINDINGS: Lungs/Pleura: Lungs are mildly hypoinflated. There is prominence of the pulmonary vascular pattern and minimal interstitial edema slightly more evident on the right. No significant effusion. No extra-ventilatory air. No confluent airspace opacities. Mediastinum: Heart size is borderline enlarged. Atherosclerotic tortuosity noted of the thoracic aorta. Other: None. IMPRESSION: Mild interstitial pulmonary edema. Mild hypoinflation. RADIA
[2018-12-16] MEDS: OSELTAMIVIR 75 MG CAPSULE PO SCH (08:28)
[2018-12-16] MEDS: CERAMIDES TOP SCH (08:28)
[2018-12-16] MEDS: POLYETHYLENE GLYCOL 3350 17 GM PACKET PO SCH (08:28)
[2018-12-16] MEDS: HEPARIN 5,000 UNIT/ML VIAL SUBQ SCH (08:28)
[2018-12-16] MEDS: risperiDONE 0.25 MG TABLET PO SCH (08:35)
--- NOTE | 2018-12-16 10:50 | Discharge Plan ---
"Discharge Plan for SNF / [facility] - Discharge Plan And Transition Orders Disposition: 03 SNF DC/Xfer Condition: Poor Allergies and Adverse Reactions: Allergies Allergy/AdvReac Type Severity Reaction Status Date / Time No Known Drug Allergies Allergy Verified 12/14/18 16:52 - SNF / [facility] Transition Orders Admit to (Facility): [facility] Under the care of (Name): Mariangel Parks Discharge Diagnosis: pneumonia, Influenza A, Dementia, frequent falls Medicare Certification Statement: I do not certify that [facility] care is medically necessary on a continuing basis for any of the conditions for which she/he is receiving care during hospitalization. Notify PCP of admission and forward orders to primary provider for signature. Weight on admission and: Daily Call PCP immediately if weight increases by: 2 kg Other Notification Orders: Call PCP immediately if patient develops dyspnea, chest pain/tightness or edema. House Bowel Program: Yes Additional Bowel Program Orders: If no BM after 2 days, nurse may give M.O.M. 30ml PO PRN and/or ducolax Supp 1 MD and/or EDUARDO 250mg P.O., and/or senna 1-2 tabs PO. On day 3 nurse may give repeat above order until residents constipation is resolved. Annual Influenza Vaccine (between Jun 04 and January 01): Yes Two-step PPD per [facility] [id number] or approved exception documents: Yes Treatments & Other Orders: pt may follow up his health provider at [facility] when pt is arrival at [facility]. Fall precaution and closely monitor to pt are advised. Oxygen Orders: PRN Medication Orders: PLEASE REFER TO THE DISCHARGE MEDICATION LIST. Insulin Orders?: No - Medications New Prescriptions: Cephalexin [Keflex] 500 mg PO BID #10 capsule Oseltamivir [Tamiflu] 75 mg PO BID #6 capsule Saccharomyces Boulardii [Florastor] 250 mg PO DAILY #5 capsule - Diet Type: Geriatric Texture: Regular Liquids: Thin May have monthly special meal: Yes - Therapies | Activity Rehabilitation Potential: Maximize functional status Activity: Activity as Tolerated Additional Instructions: pt may follow up his health provider at [facility] when pt is arrival at [facility]. Fall precaution and closely monitor to pt are advised."
--- NOTE | 2018-12-16 11:07 | DISCHARGE SUMMARY ---
Discharge Summary Discharge Date: 12/16/18 Discharging Provider: DORMAN Primary Care Provider: Condition at Discharge: Poor Discharge Disposition: SNF DC/Xfer Discharge Facility Name: [facility] - DIAGNOSES Admission Diagnoses: (1) Pneumonia (2) Influenza A (3) Dementia (4) Frequent falls Discharge Diagnoses with Status of Each Condition: 1) Pneumonia stable. After treatment, pt has 96% sats on room air. no fever,chill, cough, wheezing, WBC is normal. continue finish the antibiotics course (2) Influenza A pt was tested positive for Influenza A. pt was treated with Tamiflu. Pt is prescribed Tamiflu to finish the course. (3) advanced Dementia stable as his baseline. continue palliative care and followu PCP (4) Frequent falls all images studies reveals no acute injury. pt is on [facility]. continue to be managed by nurse facility and PCP - HPI History of Present Illness: refer from Dr. Ashton's HPI on 12/15/18 for pt as the following: Patient seen on 12/14/18 at 1950pm This history is very limited and mainly obtained from the ED staff. The patient has severe dementia and unable to communicate. He presents from a Intermediate Facility. I have attempted to contact the facility with no success. I left my contact for a call back. It is reported that the patient has been having frequent falls over the past day. It was reported that he hit his head. While being assessed for the falls in the ED, he was found to be febrile and had a transient drop in his blood pressure. His work up then included CXR which showed some opacities and his influenza test was positive. As a result he is being admitted for further treatment. He would stir and open his eyes to verbal and tactile stimuli, then fall back to sleep. He does not appear to be in any distress. - HOSPITAL COURSE Hospital Course: pt was found to have frequent falls recently. pt was found to positive influenza and pneumonia, which may contribute to his acute change. pt was treated with antibiotics and Tamiflu. After treatment, pt become 96% sats on room air, no cough, chill, fever, WBC is normal, and hemodynamic stable. - ALLERGIES Allergies/Adverse Reactions: Allergies Allergy/AdvReac Type Severity Reaction Status Date / Time No Known Drug Allergies Allergy Verified 12/14/18 16:52 - MEDICATIONS Home Medications: Ambulatory Orders Medication Instructions Recorded Confirmed Lorazepam [Ativan] 0.5 mg PO Q6H PRN 06/14/17 12/15/18 risperiDONE [RisperDAL] 0.25 mg PO BID 06/14/17 12/15/18 Acetaminophen 500 mg PO Q4H PRN MDD 3000 mg max 09/09/17 12/15/18 per day Ceramides 1,3,6-11 [Cerave] 1 applic TOP BID 11/18/18 12/15/18 Loratadine 10 mg PO QPM 11/18/18 12/15/18 Cephalexin [Keflex] 500 mg PO BID #10 capsule 12/16/18 Oseltamivir [Tamiflu] 75 mg PO BID #6 capsule 12/16/18 Saccharomyces Boulardii [Florastor] 250 mg PO DAILY #5 capsule 12/16/18 - PHYSICAL EXAM AT DISCHARGE General Appearance: positive: No acute distress, Alert. negative: Lethargic Eyes Bilateral: positive: Normal inspection, PERRL, No lid inflammation, Conjunctivae nml ENT: positive: ENT inspection nml, Pharynx nml, No signs of dehydration. negative: Purulent nasal drainage, Pharyngeal erythema, Oral lesions Neck: positive: Nml inspection, Thyroid nml, No JVD, Trachea midline. negative: Thyromegaly, Lymphadenopathy (R), Lymphadenopathy (L), Stiff neck, Swelling/bruising, Tracheal deviation Respiratory: positive: Chest non-tender, No respiratory distress, Breath sounds nml. negative: Wheezes, Rales, Rhonchi Cardiovascular: positive: Regular rate & rhythm, No murmur, No gallop. negative: Irregularly irregular, Extrasystoles, Tachycardia, Bradycardia, JVD present, Systolic murmur, Diastolic murmur Peripheral Pulses: positive: 2+ Abdomen: positive: Non-tender, No organomegaly, Nml bowel sounds, No distention. negative: Tenderness, Guarding, Rebound Back: positive: Nml inspection. negative: CVA tenderness (R), CVA tenderness (L) Skin: positive: Color nml, No rash, Warm, Dry. negative: Cyanosis, Diaphoresis, Pallor Extremities: positive: Nml appearance. negative: Calf tenderness, Joint swelling, Corrina's sign/cords Neurologic/Psychiatric: negative: Weakness, Sensory loss, Facial droop, Slurred/abnml speech, Depressed mood/affect - LABS Result Diagrams: 12/16/18 05:39 12/16/18 05:39 - SEPSIS Current Stage of Sepsis: Sepsis Possible source of Sepsis: Pulmonary - FOLLOW UP Follow Up: pt may follow up his health provider at [facility] when pt is arrival at [facility]. Fall precaution and closely monitor for prevention of falls. - TIME SPENT Time Spent in Discharge (Minutes): 55
[2018-12-16 11:16] VITALS: BP 97/76
== END 2018-12-16 13:50 | DRG 871 ==
LOC: EDUNIT# → ED 16:41 → MS2 20:05
PROVIDERS: ADMIT Internal Medicine; ATTEND Nurse Practitioner Gerontology
DX: J18.1 Lobar pneumonia, unspecified organism (principal); A41.2 Sepsis due to unspecified staphylococcus; S09.90XA Unspecified injury of head, initial encounter; J10.00 Influenza due to other identified influenza virus with unspecified type of pneumonia; E87.1 Hypo-osmolality and hyponatremia; F03.90 Unspecified dementia, unspecified severity, without behavioral disturbance, psychotic disturbance, mood disturbance, and anxiety; E78.00 Pure hypercholesterolemia, unspecified; H40.9 Unspecified glaucoma; G47.30 Sleep apnea, unspecified; R01.1 Cardiac murmur, unspecified; N40.0 Benign prostatic hyperplasia without lower urinary tract symptoms; R29.6 Repeated falls; M19.90 Unspecified osteoarthritis, unspecified site; S40.012A Contusion of left shoulder, initial encounter; W19.XXXA Unspecified fall, initial encounter; Z66 Do not resuscitate; Y92.129 Unspecified place in nursing home as the place of occurrence of the external cause; Z91.81 History of falling; Z79.899 Other long term (current) drug therapy
CPT/HCPCS: 36415; 51701; 70450; 71045; 71046; 72125; 73030; 80048; 80053; 81003; 81599; 83605; 83690; 83735; 84484; 85025; 87040; 87275; 87276; 93005; 96365; 99284; A9270; J7120; J8499; 81001; 87077; 87086

== ENCOUNTER 2018-12-19 13:15 | Outpatient (CLI) | payer MEDICARE ==
--- NOTE | 2018-12-19 20:53 | CONSULTATION NOTE ---
Palliative Care Follow Up - Referral Referring Provider: Dr. Radha Lombardo Time of Visit: 0536-2670 Referral setting: Assisted living Referral Reason: pneumonia/flu - Information Sources Records reviewed: RN notes reviewed, Previous records reviewed History/Review of Systems obtained from: Family (son Philip at visit) Exam limitations: Clinical condition (patient with advanced dementia) - History of Present Illness Update Brief HPI Update: This is an 88-year-old gentleman who unfortunately had a series of events. He had originally a fall, for which he hit his head, had a laceration, and had a workup and was sent back to facility. He was readmitted with another fall, found to be febrile, and workup on chest x-ray included some opacity and his influenza test was positive. He was discharged on 12/16/2018. His son is quite distressed as he feels like he was not at his baseline, he was very weak, and he had flown out to be with him. He has been attending to him including pushing fluids, today I find him up in the chair, he is a 2 person assist to stand, but is eating, and able to engage at his baseline. He was diagnosed with pneumonia, influenza A treated with Tamiflu which he is completing, he does appear there was very little communication from the sons and facilities perception regarding plan of care. Patient has been isolated in his room, he does not have a moist productive cough, and has been treated with Tamiflu. Did follow-up with DON to release him from isolation. Social History - Living Situation Living arrangement: Assisted living Living Situation: With spouse/s.o. Support System: Patient and with both underlying dementia as, were placed at the memory care unit together. There have been some altercations precipitated by the . Patient is quite decile, and cooperative. Son Philip does oversee their care, comes out frequently every 4-5 weeks to check on him, he is here currently to provide support. He remains quite distressed by the handoff from [facility], agreed would provide feedback to the health care team. Medications/Allergies - Medications Home Medications: Ambulatory Orders Medication Instructions Recorded Confirmed Lorazepam [Ativan] 0.5 mg PO Q6H PRN 06/14/17 12/19/18 risperiDONE [RisperDAL] 0.25 mg PO BID 06/14/17 12/19/18 Acetaminophen 500 mg PO Q4H PRN MDD 3000 mg max 09/09/17 12/19/18 per day Ceramides 1,3,6-11 [Cerave] 1 applic TOP BID 11/18/18 12/19/18 Loratadine 10 mg PO QPM 11/18/18 12/19/18 Cephalexin [Keflex] 500 mg PO BID #10 capsule MDD 12/16/18 12/19/18 finish 12/21 Saccharomyces Boulardii [Florastor] 250 mg PO DAILY #5 capsule 12/16/18 12/19/18 - Allergies Allergies/Adverse Reactions: Allergies Allergy/AdvReac Type Severity Reaction Status Date / Time No Known Drug Allergies Allergy Verified 12/14/18 16:52 Review of Systems - Constitutional Constitutional: reports: Fatigue, Other (unable to weigh currently secondary to weakness). denies: Fever - Ears, Nose & Throat Ears, Nose & Throat: reports: Hearing loss, Nasal congestion - Respiratory Respiratory: reports: Cough (decreased per report; none during visit) - Gastrointestinal Gastrointestinal: reports: Good appetite - Genitourinary Genitourinary: reports: Incontinence (fluctuates; do timed toileting needing two person assist) - Musculoskeletal Musculoskeletal: reports: Muscle weakness - Integumentary Integumentary: reports: Rash (improved both on head and arms) - Neurological Neurological: reports: General weakness, Memory problems (few word salad syllables only) - Psychiatric Psychiatric: reports: Behavior disturbances (does need encouragement/cueing to particpate in care) - Hematologic/Lymphatic Hematologic/Lymphatic: reports: Recurrent infections (hospitalized with pneumonia/influenza A) - All Other Systems All Other Systems: reports: Other (limited ROS with dementia) Physical Exam - Vital Signs Temperature: 96.9 C Pulse Rate: 64 Respiratory Rate: 16 O2 Saturation: 93 (ra @ rest) Blood Pressure: 112/64 - Physical Exam General Appearance: positive: Mild distress, Anxious Eyes Bilateral: positive: Normal inspection ENT: positive: No signs of dehydration Neck: positive: No JVD, Trachea midline Cardiovascular: positive: Regular rate & rhythm Respiratory: positive: Diminished in bases. negative: Wheezes, Rales, Rhonchi Abdomen: positive: Soft, Obese Skin: positive: Dryness (on head improved), Rash (arms with few scattered dry lesions but much improved) Extremities: positive: Pedal edema (left foot old injury) Neurologic/Psychiatric: positive: Disoriented to person, Disoriented to place, Disoriented to time, Weakness, Flat affect Comments/Other: Nods off to sleep easily, on awakening does try to engage and provide word salad syllables. Is trying to get out of chair, but is too weak, he is redirected. Palliative Care - POLST Patient has POLST: Yes POLST Status: DNR, Selective Treatment Performance Status: Patient at baseline is able to ambulate around the facility, and often toilet self independently. Today he is unable to get from sit to stand without 2 person assist. Son reports he was very weak and mostly bedbound through the weekend, has improved some. Discussion included possibly engaging physical therapy, would like to wait and see how he responds/or if improves next few days. - Palliative Care Discussion: Patient with advanced dementia, conversation with Philip regarding concern for returning to [facility]. Did discuss in the context of records, and ability for palliative care to follow, would recommend not transition to [place] as a "go to" at this point. Agreed would follow-up with players regarding his concerns. We did discuss in the context of his most recent hospitalization, concern for him returning back to his previous level of functioning. He is quite weak, and often hospitalizations/infections at to the decline. Philip's goals are to continue to focus on comfort, minimize distress for his father, and continue to revisit weighing Benefits/burdens of treatment concerns as a arise. Impression and Recommendations - Palliative Care Impression: This is a 88-year-old gentleman with advanced dementia, presenting as a FAST7B. He has been acutely hospitalized 12/14-12/16 for pneumonia and influenza A. Patient continues to have sequela of being significantly weak, he is eating and drinking, no longer has any flu symptoms. Palliative care to continue provide support and oversight focusing on quality of life issues. Recommendations/Counseling Done: 1. Influenza A. Patient completing Tamiflu, does not present with any cough, O2 sats are 93%, follow-up with staff regarding discontinuation of isolation. 2. Pneumonia. Patient completing antibiotic, does not appear short of breath. Does have diminished breath sounds in bases. Patient does have residual weakness, but is eating and drinking. We will continue to monitor. 3. Generalized weakness. Patient at baseline was ambulatory, currently is a 2 person maximum assist. Counseling provided regarding possibly enlisting help of [facility] rehab physical therapy for strengthening. Son would like to wait and see how patient returns to baseline. Did recommend with staff use wheelchair, and put patient out in day room, where he can be monitored. He is quite impulsive and is trying to get up, currently he is too weak and is at high risk for falls. 4. Seboratic Dermatitis of the scalp. This is multifactorial in origin, using Selsun shampoo twice a week with bathing, does appear to be resolving. 5. 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 Patient currently receiving moisturizing, and loratadine 10 mg at bedtime does appear to be managing pruritus and discomfort. 6. Advanced care planning. Son is present, reviewed goals of care and concerns regarding hospitalization of a patient with advanced dementia. Goal is still to continue to focus on quality of life issues, anticipatory guidance given rega rding patient's ongoing decline. Time Spent: 45 minutes with greater than 50% of this done in counseling and family conference with son Philip, follow-up with coordination of care with facility staff.
== END 2018-12-19 13:16 | disposition home or self-care (01) ==
LOC: PC 13:15
PROVIDERS: ATTEND Nurse Practitioner Adult Health
DX: Z51.5 Encounter for palliative care (principal); J10.00 Influenza due to other identified influenza virus with unspecified type of pneumonia; F03.91 Unspecified dementia, unspecified severity, with behavioral disturbance; L21.9 Seborrheic dermatitis, unspecified; Z66 Do not resuscitate; Z91.81 History of falling; Z79.899 Other long term (current) drug therapy

== ENCOUNTER 2018-12-27 15:15 | Outpatient (CLI) | payer MEDICARE ==
--- NOTE | 2018-12-27 18:26 | CONSULTATION NOTE ---
Palliative Care Follow Up - Referral Referring Provider: Dr. Radha Lombardo Time of Visit: [id number] Referral setting: Assisted living Referral Reason: LE edeme/dementia with behavioral disturbances - Information Sources Records reviewed: RN notes reviewed, Previous records reviewed History/Review of Systems obtained from: Family (update from son Philip who was with patient last wek), Caregiver (clinical staff) Exam limitations: Clinical condition (patient with advanced dementia; word salad only) - History of Present Illness Update Brief HPI Update: This is an 88-year-old gentleman who recently was treated for pneumonia and influenza A at [facility], He was discharged on 12/16/2018. He has had ongoing recovery, but not back to baseline. He has no cough, his vital signs are stable, he was quite weak. His son who stated last week, did work with him to increase ambulation. He still needs some assistance from sitting to standing, his gait is shuffled, and he is less active than he has been. He has had a couple falls, these are related to getting from sitting to standing, with this last time a skin tear on right hand 12/21 that is healing. He was also reported to have lower extremity edema, which is not his baseline, was treated with furosemide 20 mg x 3 days, son reports he had quite a bit of urgency but edema improved today. On the left he has some slight swelling of 1-2+ just above the ankle, on the right 2+ to mid calf, as well as some scabbing, and mild erythema. It is not tender to touch or palpation. Patient is quite tall at 6 feet, weight is up to 203.6, He is fond of sweets, and staff often use those to entice him to cooperate. Patient can be resistant to care, with mild irritation and occasional agitation but does not initiate behaviors. I did find him today in another resident's room, sleeping. Staff often redirect him to his room, or his Varsha will pull him along as well. Social History - Living Situation Living arrangement: Assisted living Living Situation: With spouse/s.o. Support System: His son Philip in [place], comes out every couple months, he was just here to check in on his parents and provide support. His other son Cipriano visit seldom. Patient and were placed at memory care unit together, can precipitate altercations at times, she is verbal and much more functional. Medications/Allergies - Medications Home Medications: Ambulatory Orders Medication Instructions Recorded Confirmed Lorazepam [Ativan] 0.5 mg PO Q6H PRN 06/14/17 12/28/18 risperiDONE [RisperDAL] 0.25 mg PO BID 06/14/17 12/28/18 Acetaminophen 500 mg PO Q4H PRN MDD 3000 mg max 09/09/17 12/28/18 per day Ceramides 1,3,6-11 [Cerave] 1 applic TOP BID 11/18/18 12/28/18 Loratadine 10 mg PO QPM 11/18/18 12/28/18 - Allergies Allergies/Adverse Reactions: Allergies Allergy/AdvReac Type Severity Reaction Status Date / Time No Known Drug Allergies Allergy Verified 12/14/18 16:52 Review of Systems - Constitutional Constitutional: reports: Fatigue, Weight stable. denies: Fever, Chills - Ears, Nose & Throat Ears, Nose & Throat: reports: Hearing loss - Cardiovascular Cardiovascular: reports: Edema - Respiratory Respiratory: denies: Cough - Gastrointestinal Gastrointestinal: reports: Good appetite - Genitourinary Genitourinary: reports: Incontinence (flucutates) - Musculoskeletal Musculoskeletal: reports: Stiffness, Muscle weakness - Integumentary Integumentary: reports: Rash (improved), Dryness - Neurological Neurological: reports: General weakness, Memory problems - Psychiatric Psychiatric: reports: Behavior disturbances - Hematologic/Lymphatic Hematologic/Lymphatic: reports: Recurrent infections (recent pneumonia/flu) - All Other Systems All Other Systems: reports: Other (limited ROS with dementia) Physical Exam - Vital Signs Temperature: 96.6 C Pulse Rate: 79 Respiratory Rate: 18 O2 Saturation: 94 (ra @ rest) Blood Pressure: 118/72 - Physical Exam General Appearance: positive: No acute distress, Lethargic (awakened from nap) Eyes Bilateral: positive: Normal inspection ENT: positive: No signs of dehydration Neck: positive: Trachea midline Cardiovascular: positive: Regular rate & rhythm Respiratory: positive: No respiratory distress, Diminished in bases. negative: Wheezes, Rales, Rhonchi Abdomen: positive: Non-tender, Soft, Nml bowel sounds Skin: positive: Dryness (LE with mild dull pink venous stasis pattern), Rash (arms improved;), Wound (2 1 cm scabbed areas RLE; mild erythemia; cannot tell if scratched or injury;) Extremities: positive: Pedal edema (1-2 + left; 2+ right), Other (gait very shuffled; difficulty getting sitting to standing) Neurologic/Psychiatric: positive: Disoriented to person, Disoriented to place, Disoriented to time, Weakness, Unintelligible speech, Flat affect Palliative Care - POLST Patient has POLST: Yes POLST Status: DNR, Selective Treatment Performance Status: Patient does not appear to have returned to baseline, staff note patient is sleeping more, does appear weaker, and gait, getting from sitting to standing, and spending more time in bed. - Palliative Care Discussion: Follow-up with son Philip, had spent the week with him last week. Does recognize he is not really turned back to baseline, is aware in counseling provided regarding expected ongoing decline. Counseling provided regarding how best to support patient, wants to continue to focus on quality of life issues, is aware patient still at high risk for sequela of a fall. He does plan to come back again in February unless other issues arise. Impression and Recommendations - Palliative Care Impression: This is an 88-year-old gentleman with advanced dementia, presenting as a FAST7B. He has recently been hospitalized for pneumonia and a. Also presented with increased lower extremity edema with improvement now. Patient continues to improve but not back to baseline functional status. Palliative care to continue provide support and oversight focusing on quality of life issues. Recommendations/Counseling Done: 1. Generalized weakness. Patient is able to ambulate, does appear somewhat weaker. Discussion with both [facility] and son, given patient's difficulty cooperating and with cueing, patient would not be appropriate for a walker. Will have staff continue to encourage him to ambulate back and forth for meals, if patient has another fall, will revisit physical therapy prescription. 2. Active eczema on forearms. This is continued to improve, loratadine 10 mg at bedtime does appear to be managing pruritus and discomfort. Unclear if right scabbing right lower extremity due to patient scratching, staff will monitor. 3. Lower extremity edema. Patient does have some residual edema, son reports when received Lasix had frequent impulsivity to get up and go to the bathroom. Patient is almost back to baseline, will continue to monitor and not initiate long-term. 4. Advanced care planning. Follow-up with son, regarding goals of care, he will be visiting again in February. Goal is to continue to focus on quality of life issues, highest risk for sequela of a fall. Patient does have a NASEEM ST as DNA R and selective treatments, son Philip Law [phone] his main D POA and involved in care Time Spent: 20 minutes was given 50% of this done in coordination of care with staff, family, and counseling regarding anticipatory guidance.
== END 2018-12-27 15:16 | disposition home or self-care (01) ==
LOC: PC 15:15
PROVIDERS: ATTEND Nurse Practitioner Adult Health
DX: Z51.5 Encounter for palliative care (principal); R53.1 Weakness; R60.0 Localized edema; L30.9 Dermatitis, unspecified; R23.4 Changes in skin texture; F03.91 Unspecified dementia, unspecified severity, with behavioral disturbance; Z91.81 History of falling; Z87.01 Personal history of pneumonia (recurrent); Z66 Do not resuscitate; Z79.899 Other long term (current) drug therapy

== ENCOUNTER 2019-01-31 10:40 | Outpatient (CLI) | payer MEDICARE ==
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
== END 2019-01-31 10:41 | disposition home or self-care (01) ==
LOC: PC 10:40
PROVIDERS: ATTEND Nurse Practitioner Adult Health
DX: Z51.5 Encounter for palliative care (principal); F03.91 Unspecified dementia, unspecified severity, with behavioral disturbance; R26.89 Other abnormalities of gait and mobility; I87.8 Other specified disorders of veins; H91.90 Unspecified hearing loss, unspecified ear; R32 Unspecified urinary incontinence; R53.1 Weakness; R53.83 Other fatigue; R63.4 Abnormal weight loss; R60.0 Localized edema; Z66 Do not resuscitate; Z87.01 Personal history of pneumonia (recurrent); R29.6 Repeated falls

== ENCOUNTER 2019-03-16 13:50 | Outpatient (CLI) | payer MEDICARE ==
--- NOTE | 2019-03-16 17:06 | CONSULTATION NOTE ---
Palliative Care Follow Up - Referral Referring Provider: Dr. 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 He also has known most likely OCD behaviors, previous to decline with cognitive status. Patient has continued to improve off his risperidone, has regained his functional status steadily since January. He has of increased his vocalizations, and does get quite animated, using single words and word salad, occasionally short sentences. Though they are all nonsensical and do not correlated with questions. He does try to socially engage, is making eye contact. His gait is shuffled, does need cueing and direction for ambulating. He does need some assistance from sit to stand, but has been much more active. Staff report he is feeding himself again. His vocalizations and perseverations wax and wane, patient is sleeping at night. Though he does get confused and unable to find his room. Son is visiting from [place], is pleased to see his father stronger, able to engage in conversation, he does feel like he does recognize him. He is concerned his mother is doing poorly, unclear how long they are going to be able to stay together in the same room. He comes on a regular basis, to care for the home check on his parents, he reports he notes patient's with more significant decline this visit. Social History - Living Situation Living arrangement: Assisted living Living Situation: With spouse/s.o. Medications/Allergies - Medications Home Medications: Ambulatory Orders Medication Instructions Recorded Confirmed Lorazepam [Ativan] 0.5 mg PO Q6H PRN 06/14/17 03/16/19 risperiDONE [RisperDAL] 0.25 mg PO QDDINNER 06/14/17 03/16/19 Acetaminophen 500 mg PO Q4H PRN MDD 3000 mg max 09/09/17 03/16/19 per day Ceramides 1,3,6-11 [Cerave] 1 applic TOP BID 11/18/18 03/16/19 Loratadine 10 mg PO QPM 11/18/18 03/16/19 Polyethylene Glycol 3350 [Miralax] 17 gm PO DAILY 03/16/19 03/16/19 - Allergies Allergies/Adverse Reactions: Allergies Allergy/AdvReac Type Severity Reaction Status Date / Time No Known Drug Allergies Allergy Verified 12/14/18 16:52 Review of Systems - Constitutional Constitutional: reports: Weight stable (193.6 Patient had some weight gain at the beginning of February, had steadily lost some weight, but still within 5 pounds. He is more active now, may be counter balancing his inactivity he had earlier.) - Eyes Eyes: reports: Vision loss - Gastrointestinal Gastrointestinal: reports: Good appetite. denies: Constipation (regular movements documented) - Genitourinary Genitourinary: reports: Incontinence (intermittent) - Musculoskeletal Musculoskeletal: reports: Stiffness, Muscle weakness, Other (appears stronger; gait shuffled but walking) - Integumentary Integumentary: reports: Rash (foreamrs improved), Pruritis (improved), Dryness - Neurological Neurological: reports: General weakness, Memory problems (advanced dementia) - Psychiatric Psychiatric: reports: Other (more vocalizations; mood appears bright; staff report needing some encouragement for redirection-use ice cream/cookies often to entice) - Hematologic/Lymphatic Hematologic/Lymphatic: denies: Recurrent infections (last tx December pneumonia/influenza) - All Other Systems All Other Systems: reports: Other (limited ROS because of dementia) Physical Exam - Vital Signs Temperature: 96.4 C Pulse Rate: 62 Respiratory Rate: 18 O2 Saturation: 96 (ra @ rest) Blood Pressure: 112/64 - Physical Exam General Appearance: positive: No acute distress, Other (lots of vocalizations during visit; full words/partial sentences; very expressive in word salad communication) Eyes Bilateral: positive: Normal inspection ENT: positive: No signs of dehydration Neck: positive: No JVD, Trachea midline Cardiovascular: positive: Regular rate & rhythm Respiratory: positive: No respiratory distress, Diminished in bases. negative: Wheezes, Rales, Rhonchi Abdomen: positive: Non-tender, Soft, Nml bowel sounds Skin: positive: Pallor, Dryness, Pruritis, Rash (rash faded on arms;scalp improved), Other (venous stasis left greater than right; no s/s infection or open areas) Extremities: positive: Pedal edema (left ankle/baseline; none on right) Neurologic/Psychiatric: positive: Mood/affect nml, Disoriented to person (son believes patient recognizes him), Disoriented to place, Disoriented to time, Flat affect Palliative Care - POLST Patient has POLST: Yes POLST Status: DNR, Selective Treatment Pain: No pain (no behaviors noted) Sleep: Sleeps well Performance Status: Patient is dependent on staff for ADLs, patient now can feed himself. No signs or symptoms of choking or difficulty with swallowing. Patient does know or cues at times and he needs to use the bathroom, but does need assistance with clothing and toileting, often urinates on the floor. Impression and Recommendations - Palliative Care Impression: This is a 88-year-old gentleman with advanced dementia, most likely vascular mixed with Alzheimer's, presenting as a F AST7B. Patient has improved functionally, is able to ambulate short distances with shuffled gait, is feeding himself again, though has started with frequent vocalizations. Staff report this is not in response to agitation, becomes perseverative on certain words, does not feel this is distressful or problematic at this point in time. Palliative care to continue provide support and oversight focusing on quality of life issues, family goals are to avoid hospitalization Recommendations/Counseling Done: 1. Dementia with behavioral disturbances. Patient's risperidone was decreased to 1 tablet daily on . Patient has not seen an exacerbation of neuropsychiatric behaviors other than increased vocalizations. Patient's lethargy has improved, as well as able to ambulate and self feed. Counseling provided regarding weighing benefits and burdens of adding back half tablet risperidone in the a.m., after consultation with staff and son, will hold off. Staff feel patient's current behaviors and management is not a good balance currently. 2. Generalized weakness. Patient has not had any recent falls, remains quite impulsive but is ambulatory at this point in time. 3. Weight loss. Patient has stabilized at current weight, patient is eating more as likes cake and ice cream. But is more active, ambulating around the halls with a shuffled gait. We will continue to weekly monitor, problem appears resolved. 4. Venous stasis. Lower extremities continue to improve with moisturization to his lower extremities, this is done daily. Skin remains quite fragile, no signs of cellulitis, patient's nails are long again, will have staff cut nails as patient continues to scratch himself. Though his pruritus does appear improved overall. 5. Advanced care planning. Philip FITZGERALD [phone] remains very next available and involved, to help with any decision making. He is here for a few days, goal remains to focus on quality of life issues. Time Spent: 40 minutes was given 50% of this done in counseling was son, regarding goals of care, follow-up on medication changes, and anticipatory guidance.
== END 2019-03-16 13:51 | disposition home or self-care (01) ==
LOC: PC 13:50
PROVIDERS: ATTEND Nurse Practitioner Adult Health
DX: Z51.5 Encounter for palliative care (principal); F03.91 Unspecified dementia, unspecified severity, with behavioral disturbance; F42.9 Obsessive-compulsive disorder, unspecified; R26.89 Other abnormalities of gait and mobility; H54.7 Unspecified visual loss; R32 Unspecified urinary incontinence; Z87.01 Personal history of pneumonia (recurrent); R53.1 Weakness; I87.8 Other specified disorders of veins; L29.9 Pruritus, unspecified; Z66 Do not resuscitate

== ENCOUNTER 2019-04-24 13:50 | Outpatient (CLI) | payer MEDICARE ==
--- NOTE | 2019-04-25 17:39 | CONSULTATION NOTE ---
Palliative Care Follow Up - Referral Referring Provider: Dr Kyra Lombardo Time of Visit: Wednesday04/24/2019. 13:50 - 14:35 Referral setting: Assisted living ([facility]) Referral Reason: Dementia with behavior disturbances - Information Sources Records reviewed: RN notes reviewed, Previous records reviewed History/Review of Systems obtained from: Patient, Family, Nursing Exam limitations: Clinical condition (advanced dementia) - History of Present Illness Update Brief HPI Update: 88-year-old gentleman with advanced dementia, weak but functionally stable. Medical history: Dementia, likely mixed vascular and Alzheimer's type; HLD, murmur (unspecified), sleep apnea (no CPAP use), advanced dementia, BPH, glaucoma, osteoarthritis, AAA repair, date unspecified. Patient has likely OCD behaviors, he was taken off risperidone, which had initially improved his functional status. After discontinuation of risperidone, repetitive, compulsive vocalizations increased as did his busy-ness and distress, so fernando Palacios agreed to the plan to reintroduce risperidone 0.25mg tab. Initially it was half a tab in the a.m., then increased to a full tab. The persistent chatter continued, so 04/12/19 risperidone 0.25mg was increased to BID. The patient has had no signs of sedation. Nursing reports chattering vocalizations continue, but less intensive than previously and of less duration. At today's assessment patient does chatter and engage well with this provider, with some appropriate responses to questions and comments, such as "ok ok ok" when asked if he wants ice cream. Patient is redirectable when offered treats such as ice cream or cookies. He iss mostly cooperative during the assessment. and agreeable to walking through the facility with nurse, this provider, and his . Gait is hesitant and slow; nursing was recently able to have him use a walker wi th good results, but most of the time he doesn't use it properly. Patient has two small, new venous stasis blisters on medial aspect of L lower extremity, secondary to edema. Patient's lower extremity positioning is mostly dependent. He does have a recliner in his room that can be used to elevate his legs. Provider and staff guided him to one recliner in the facility to elevate. He was cooperative because nurse hae ice cream visible in her hand, and he willingly followed her. Called fenrando Palacios to provide update on the patient's verbalizations, he agrees with continuing risperidone at current level and attempting increased elevation of LEs for the edema. Social History - Living Situation Living arrangement: Assisted living ([facility]) Living Situation: With spouse/s.o., With caregiver(s) Support System: Eldest son, Philip Law/GIANA, [phone], visits about every other month from [place]. Son Cipriano lives in [place], [place], and visits occasionally. Third son, Tk, lives "on the streets" in [place], [place]. The patient and Varsha have been 40+ years. Medications/Allergies - Medications Home Medications: Ambulatory Orders Medication Instructions Recorded Confirmed Lorazepam [Ativan] 0.5 mg PO Q6H PRN 06/14/17 03/16/19 risperiDONE [RisperDAL] 0.25 mg PO QDDINNER 06/14/17 03/16/19 Acetaminophen 500 mg PO Q4H PRN MDD 3000 mg max 09/09/17 03/16/19 per day Ceramides 1,3,6-11 [Cerave] 1 applic TOP BID 11/18/18 03/16/19 Loratadine 10 mg PO QPM 11/18/18 03/16/19 Polyethylene Glycol 3350 [Miralax] 17 gm PO DAILY 03/16/19 03/16/19 - Allergies Allergies/Adverse Reactions: Allergies Allergy/AdvReac Type Severity Reaction Status Date / Time No Known Drug Allergies Allergy Verified 12/14/18 16:52 Review of Systems - Constitutional Constitutional: reports: Weight loss (He has a fluctuating weight range. Currently weighs 192.8 lbs, and his range has been in the 190s. Earlier this year his range was low 200s. Prior to that it was the 190s, and from Jul 2017- March 2018 the range was mid-180s. Pt has a strong sweet tooth.) - Ears, Nose & Throat Ears, Nose & Throat: reports: Hearing loss, Hearing aids - Gastrointestinal Gastrointestinal: reports: Constipation (intermittent; BMs every 2-3 days), Good appetite - Genitourinary Genitourinary: reports: Incontinence (intermitten) - Musculoskeletal Musculoskeletal: reports: Stiffness, Joint swelling (chronic for year, L ankle), Transfer issues ( weaker, can use assitance), Other (shuffling gait). denies: Assistive devices (can't use walker most of time, but was using it successfully the other day) - Integumentary Integumentary: reports: Lesions (2 small blisters medial L lower extremity) - Neurological Neurological: reports: General weakness, Memory problems - Psychiatric Psychiatric: reports: Other (Persistent vocalizations. Pt is attempting more engagement with provider than at previous visits. Pt is mostly cooperative and redirectable with sweets as a reward. He's notcombative but resists if staff try to remove something he is holding on to or wants.). denies: Aggitation Physical Exam - Vital Signs Temperature: 96.4 F Pulse Rate: 95 O2 Saturation: 95 (room air) Blood Pressure: 116/88 (wrist cuff) - Physical Exam General Appearance: positive: No acute distress, Alert, Other (persistent word salad, some of it makes sense in context. Staff reports it's less than previ ously, and it mostly occurs when he is with others) Eyes Bilateral: positive: Normal inspection ENT: positive: No signs of dehydration Neck: positive: Trachea midline Cardiovascular: positive: Regular rate & rhythm Respiratory: positive: Chest non-tender, No respiratory distress Abdomen: positive: Non-tender, Soft, Nml bowel sounds Skin: positive: Dryness, Wound (small venous stasis blisters medial L lower extremity, red color, no warmth or swelling) Extremities: positive: Pedal edema (Left worse than right. Doesn't elevate legs often), Joint swelling (L ankle, stiff, enlarged x years) Neurologic/Psychiatric: positive: Mood/affect nml, Disoriented to person, Disoriented to place, Disoriented to time Palliative Care - POLST Patient has POLST: Yes POLST Status: DNR, Selective Treatment Pain: No pain (no signs noted) Anorexia: None Constipation: Comment (BMs every 2-3 days) Performance Status: Ambulatory, shuffling gait Verbal chattering, word salad Dependent for all ADLs Urination on floor, in wastebaskets Redirectable often with sweets Able to feed himself FAST 7B Impression and Recommendations - Palliative Care Impression: 88-year-old gentleman with advancing dementia, recently restarted on risperidone for increased, persistent word-salad chatter, which has improved with increased dosing. Palliative care will continue to provide monitoring and support of patient with focus on comfort and quality of life. Recommendations/Counseling Done: Dementia with behavior disturbance: Yuval ferris improved with risperidone 0.25mg BID. No signs of sedation. He hasn't been given any PRN lorazepam this month. Staff will continue to monitor for agitation, sedation. Venous stasis: Increased edema, especially on left, with two small venous stasis blisters on medial left lower extremity. Recommended nursing staff assist him to elevate legs throughout the day. Patient is not on diuretics, has no CHF signs or diagnosis. Diuretics are problematic with patient's history of impulsivity, has gotten up from dining room table and urinated on floor. Staff will monitor blisters and work with patient so he elevates legs. Consider a short course Generalized weakness: Shuffling gait, remains ambulatory, no falls. Advanced care planning: POLST is DNR and selective; son/DPOA wants to focus on comfort and quality of life. Time Spent: 45 minutes were spent with more than 50% of the time spent on counseling, education, and coordination of care with staff and son/DPOA.
== END 2019-04-24 13:51 | disposition home or self-care (01) ==
LOC: PC 13:50
PROVIDERS: ATTEND Nurse Practitioner
DX: Z51.5 Encounter for palliative care (principal); F03.91 Unspecified dementia, unspecified severity, with behavioral disturbance; R60.0 Localized edema; I87.8 Other specified disorders of veins; R23.8 Other skin changes; Z66 Do not resuscitate; Z79.899 Other long term (current) drug therapy

== ENCOUNTER 2019-08-17 12:00 | Outpatient (CLI) | payer MEDICARE ==
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
== END 2019-08-17 12:01 | disposition home or self-care (01) ==
LOC: PC 12:00
PROVIDERS: ATTEND Nurse Practitioner Adult Health
DX: Z51.5 Encounter for palliative care (principal); F03.91 Unspecified dementia, unspecified severity, with behavioral disturbance; F42.9 Obsessive-compulsive disorder, unspecified; S00.83XA Contusion of other part of head, initial encounter; S61.411A Laceration without foreign body of right hand, initial encounter; W19.XXXA Unspecified fall, initial encounter; Y92.129 Unspecified place in nursing home as the place of occurrence of the external cause; R60.0 Localized edema; L29.9 Pruritus, unspecified; R21 Rash and other nonspecific skin eruption; Z66 Do not resuscitate; Z91.81 History of falling; Z79.899 Other long term (current) drug therapy; Z87.01 Personal history of pneumonia (recurrent)

== ENCOUNTER 2019-10-05 13:56 | Outpatient (CLI) | payer MEDICARE ==
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
== END 2019-10-05 13:57 | disposition home or self-care (01) ==
LOC: PC 13:56
PROVIDERS: ATTEND Nurse Practitioner Adult Health
DX: Z51.5 Encounter for palliative care (principal); F03.91 Unspecified dementia, unspecified severity, with behavioral disturbance; F41.9 Anxiety disorder, unspecified; F42.9 Obsessive-compulsive disorder, unspecified; I87.8 Other specified disorders of veins; R60.0 Localized edema; L29.9 Pruritus, unspecified; Z79.899 Other long term (current) drug therapy; Z66 Do not resuscitate

== ENCOUNTER 2020-01-29 11:40 | Outpatient (CLI) | payer MEDICARE ==
--- NOTE | 2020-01-29 17:52 | CONSULTATION NOTE ---
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 He is seen in evaluation today given a recent fall and noted left ankle swelling. Per the son/DPOA, Craig, reports the patient has a past history of an old injury to his left ankle "many years ago" that never quite resolved his son/D ISAA also reports that the patient has underlying osteoarthritis and will also have difficulties with his left shoulder at times. Last week the patient sustained 2 falls. The first fall occurred on January 22 without reported injury. The patient then sustained a second fall on 01/24 when he was found sitting on the floor next to the bed. He was noted to have some gait impairment to his left side when ambulating and the left foot and ankle appeared more edematous. He was placed on routine acetaminophen with noted resu lts and improvement of discomfort. Per the nursing staff the patient's left lower extremity edema appears to be at baseline. No evidence of infection or skin tears. The patient has a history of OCD behaviors which was present prior to his cognitive decline. He has compulsive vocalizations and remains on risperidone 0.25 mg twice daily of which he failed a trial of dose reduction. When last ass essed in October 2019 the patient was initiated on a 5 mg dose of citalopram at bedtime to alleviate anxiety and help with vocalization and neuropsychiatric behaviors in dementia. Staff deny any changes in behavior of concern. On examination the patient is quite engaged with eye contact With not his typical low vocalizations were humming. He is able to rise from the chair that he is occupying with assistance hand is able to ambulate by holding onto this [employer] with a shuffled gait. He does demonstrate bilateral lower extremity edema that is more prominent on the left versus the right but according to nursing staff in previous documentation this appears to be his baseline. The patient was able to move about the room with no evidence of increased vocalization or facial grimacing to indicate discomfort. Patient has a past medical history of hyperlipidemia, murmur, sleep apnea without CPAP use, dementia, BPH, glaucoma, osteoarthritis,. Social History - Living Situation Living arrangement: Assisted living Living Situation: With spouse/s.o. Support System: The patient and his , Hyacinth, both reside in [facility] memory care unit in a shared room. 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 He has never smoked. He and his have 3 sons. The patient's son, Craig is his D POA and he resides in [place]. His contact number is [phone]. Craig comes to [facility] every few months to visit and spend time with his parents. Presently due to the coronavirus pandemic he has not been able to travel recently. Medications/Allergies - Medications Home Medications: Ambulatory Orders Medication Instructions Recorded Confirmed Lorazepam [Ativan] 0.5 mg PO Q6H PRN 06/14/17 01/29/20 risperiDONE [RisperDAL] 0.25 mg PO BID 06/14/17 01/29/20 Acetaminophen 500 mg PO Q4H PRN MDD 3000 mg max 09/09/17 01/29/20 per day Ceramides 1,3,6-11 [Cerave] 1 applic TOP BID 11/18/18 01/29/20 Loratadine 10 mg PO QPM 11/18/18 01/29/20 polyethylene glycoL 3350 [Miralax] 8.5 gm PO DAILY 03/16/19 01/29/20 Citalopram [CeleXA] 5 mg PO QPM 10/05/19 01/29/20 - Allergies Allergies/Adverse Reactions: Allergies Allergy/AdvReac Type Severity Reaction Status Date / Time No Known Drug Allergies Allergy Verified 12/14/18 16:52 Review of Systems - Constitutional Constitutional: reports: Weight stable (weight presently 196lb; 01/05/2019 weight 199lb). denies: Fatigue, Fever - Eyes Eyes: denies: Corrective lenses - Ears, Nose & Throat Ears, Nose & Throat: denies: Hearing loss - Cardiovascular Cardiovascular: reports: Edema (LLE) - Respiratory Respiratory: denies: Cough (no cough observed), SOB with exertion (not observed with ambulation) - Gastrointestinal Gastrointestinal: reports: Good appetite. denies: Constipation - Genitourinary Genitourinary: reports: Incontinence (intermittent) - Musculoskeletal Musculoskeletal: reports: Stiffness, Joint pain. denies: Joint swelling - Integumentary Integumentary: reports: Dryness - Neurological Neurological: reports: General weakness, Memory problems (vocalizations with constant monaing/humming), Abnormal gait (shuffled gait) - Psychiatric Psychiatric: denies: Depression - Endocrine Endocrine: denies: Diabetes type 2 - Hematologic/Lymphatic Hematologic/Lymphatic: denies: Recurrent infections - All Other Systems All Other Systems: reports: Reviewed and negative (Limited ROS due to dementia) Physical Exam - Vital Signs Temperature: 36.2 C Pulse Rate: 63 O2 Saturation: 96 (on RA at rest) Blood Pressure: 134/67 (left wrist cuff) - Physical Exam General Appearance: positive: No acute distress, Alert, Other (OOB in side chair in room with Varsha sleeping in bed; tall) ENT: positive: No signs of dehydration Neck: positive: No JVD, Trachea midline Cardiovascular: positive: Regular rate & rhythm Respiratory: positive: No respiratory distress, Breath sounds nml. negative: Rales Abdomen: positive: Non-tender, Soft, Nml bowel sounds Skin: positive: Dryness, Other (Venousis stasis changes BLE) Extremities: positive: Pedal edema (LLE +1 from ankle to mid calf and trace RLE; calf circumference 30cm on right and 32cm on left; able to weight bear on left ankle with no tenderness to palpation of lateral malleolus with skin intact) Neurologic/Psychiatric: positive: Mood/affect nml, Disoriented to person, Disoriented to place, Disoriented to time, Unintelligible speech, Flat affect, Other (shuffled gait) Palliative Care - POLST Patient has POLST: Yes POLST Status: DNR, Selective Treatment Pain: Pain unchanged (no visible pain on assessment and tolerated ambulation; on routine tylenol administration) Constipation: No Performance Status: The patient remains ambulatory and weightbearing. After his last fall he has had some days where he will be in the wheelchair. He is dependent on staff for ADLs, dressing, and bathing. He continues to be able to self feed. No evidence of coughing during meals to indicate dysphasia. FAST 7B - Palliative Care Discussion: Discussion with son/D Alex FITZGERALDhen regarding patient's recent falls and noted lower extremity edema. As the lower extremity edema on the left appears to be at baseline and patient is able to weight-bear it is unlikely that he sustained an injury such as a fracture. The patient son also reports that he is someone that is known to sleep on the floor for comfort are also to have some relief if Varsha is poking him in the middle of the night. Reviewed with son/D AMILCAR limited availability of management within the facility as there are no diagnostic equipment available within the facility with son understanding. Son/D ISAA would not wish the patient to go out for diagnostic imaging on the left ankle, such as an x-ray as he is presently comfortable and it would not change our present management. We will continue routine acetaminophen at the present time and reviewed evaluate if this will need to be continued. But as the son relayed, the patient has a longstanding history of osteoarthritis specifically in the left ankle due to a prior injury. The son wishes to focus on comfort measures. He is hoping to visit once travel restrictions are lifted and the facility is no longer limiting visitors due to the coronavirus pandemic. Impression and Recommendations - Palliative Care Impression: This is a parrish 89-year-old gentleman with advanced dementia, most likely v ascular head mixed presenting as a FAS T7 B. He recently sustained 2 falls with impaired ambulation that has gradually improved over time as well as with routine acetaminophen administration. On examination, the patient does not indicate any signs of discomfort or distress related to his left ankle. His lower extremity edema appears to be at baseline. His vocalizations due to his dementia are also at baseline. Palliative care to continue to provide pain and symptom management and anticipatory guidance. Recommendations/Counseling Done: 1. Lower extremity edema. Patient has a longstanding history of bilateral lower extremity edema with the left more prominent than the right. Left lower extremity appears to be at baseline per nursing and previous clinical eval uations. Skin is intact without any evidence of infection. Continue to monitor and RANDY stockings are pending for application. 2. Left ankle injury. Patient has a prior history of a left ankle injury. Continues with a shuffling gait with assistance. Is able to weight-bear without evidence of distress. Unlikely that patient has sustained an injury such as a fracture And likely had a contusion that has slowly improved given the patient's improvement of ambulation. Son/D AMILCAR declines diagnostic imaging outside of the facility and weighing benefits versus burdens would not alter the present plan of care. Continue routine Tylenol administration as ordered and reassess in the future if this needs to be made standing due to patient's underlying history of osteoarthritis. 3.Status post fall. Falls unavoidable due to dementia. 4. Dementia with behavioral disturbances. Patient has a history of vocalizations that will escalate with anxiety. Has previously been on quetiapine. Presently vocalizations and behaviors are controlled. Continue risperidone 0.25 mg twice daily. Continue citalopram 5 mg nightly for neuropsychiatric component. Continue to monitor and adjust regimen as needed. Time Spent: CPT 51137 Plan of care reviewed with nursing staff. Reviewed plan of care with fernando/Craig CAMPBELL weighing benefits versus burdens with questions answered and addressed regarding symptom management and anticipatory guidance. Disclaimer: The chart note was formulated using voice recognition technology and unfortunately sound alike errors may occur.
== END 2020-01-29 11:41 | disposition home or self-care (01) ==
LOC: PC 11:40
PROVIDERS: ATTEND Nurse Practitioner Family
DX: Z51.5 Encounter for palliative care (principal); R60.0 Localized edema; F03.91 Unspecified dementia, unspecified severity, with behavioral disturbance; M19.90 Unspecified osteoarthritis, unspecified site; R53.1 Weakness; R32 Unspecified urinary incontinence; Z79.899 Other long term (current) drug therapy; Z87.828 Personal history of other (healed) physical injury and trauma; Z91.81 History of falling; Z66 Do not resuscitate

== ENCOUNTER 2020-05-28 13:00 | Outpatient (CLI) | payer MEDICARE ==
--- NOTE | 2020-05-28 16:24 | CONSULTATION NOTE ---
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 He is a FAS T7B. Patient has a history of OCD behaviors, which was present prior to his cognitive decline. He continues with compulsive vocalizations, and has remained on risperidone 0.25 mg twice daily, as has failed dose reduction in the past. On examination patient is quite easily engaged, does make eye contact, does continue with his vocalization, trying to engage in a conversation. He is easily lead from sitting to standing, short distance around the facility, does not seem to be favoring his left foot. He does have left lower extremity mild swelling, mostly centralized to the pedal area. We have trialed Lasix in the past, with only worsening incontinence. He does appear to have somewhat of a venous stasis, no open areas and only slightly pink on the left versus right. Patient's other changes have been increased difficulty with incontinence, he is urinating without respect to where he is at, sometimes he is incontinent in his clothes, other times mostly on the floor. He is incontinent of stool also and has been going regularly. Staff see he is slowing down, sitting more, sleeping when he is sitting and spending more time in his recliner. He is not had any infections, or recent falls. Patient's past medical history is hyperlipidemia, murmur, sleep apnea without CPAP use, dementia with behavioral disturbances, BPH, glaucoma, osteoarthritis. Social History - Living Situation Living arrangement: Assisted living Living Situation: With spouse/s.o. Support System: Both the patient and his Varsha, reside in [facility] memory care unit in a shared room. 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 He and his has 3 sons, the patient's son Craig is his D POA and resides in [place], his contact number is [phone]. He is planning to come this week, to get them appropriate supplies, he is in contact with the facility frequently. Medications/Allergies - Medications Home Medications: Ambulatory Orders Medication Instructions Recorded Confirmed Lorazepam [Ativan] 0.5 mg PO Q6H PRN 06/14/17 05/28/20 risperiDONE [RisperDAL] 0.25 mg PO BID 06/14/17 05/28/20 Acetaminophen 500 mg PO Q4H PRN MDD 3000 mg max 09/09/17 05/28/20 per day Ceramides 1,3,6-11 [Cerave] 1 applic TOP BID 11/18/18 05/28/20 Loratadine 10 mg PO QPM 11/18/18 05/28/20 polyethylene glycoL 3350 [Miralax] 8.5 gm PO DAILY 03/16/19 05/28/20 Citalopram [CeleXA] 5 mg PO QPM 10/05/19 05/28/20 Sennosides [Senna Lax] 8.6 mg PO DAILY 05/28/20 05/28/20 - Allergies Allergies/Adverse Reactions: Allergies Allergy/AdvReac Type Severity Reaction Status Date / Time No Known Drug Allergies Allergy Verified 12/14/18 16:52 Review of Systems - Constitutional Constitutional: reports: Weight stable (206.2). denies: Fever - Eyes Eyes: reports: Vision loss - Ears, Nose & Throat Ears, Nose & Throat: reports: Hearing loss - Cardiovascular Cardiovascular: reports: Edema (L ankle baseline), Decr. exercise tolerance - Respiratory Respiratory: denies: Cough - Gastrointestinal Gastrointestinal: reports: Good appetite. denies: Constipation - Genitourinary Genitourinary: reports: Incontinence (worsening behaviors; pees whereever he is at) - Musculoskeletal Musculoskeletal: reports: Stiffness, Muscle weakness - Integumentary Integumentary: reports: Dryness, Nail changes (toe nails long and jagged) - Neurological Neurological: reports: General weakness (more difficulty with ambulation; sitting/sleeping more per staff), Memory problems (nonverbal moaning/humming noise varies in intensity when trying to engage in conversation) - Psychiatric Psychiatric: reports: Aggitation - Hematologic/Lymphatic Hematologic/Lymphatic: denies: Recurrent infections - All Other Systems All Other Systems: reports: Other (limited ROS) Physical Exam - Vital Signs Temperature: 97.1 C Pulse Rate: 77 Respiratory Rate: 18 O2 Saturation: 94 (ra @ rest) Blood Pressure: 122/78 - Physical Exam General Appearance: positive: Alert Eyes Bilateral: positive: Normal inspection ENT: positive: No signs of dehydration Neck: positive: Trachea midline Cardiovascular: positive: Regular rate & rhythm Respiratory: positive: No respiratory distress, Breath sounds nml Abdomen: positive: Non-tender, Soft, Nml bowel sounds Skin: positive: Other (LE dryness; venous stasis on Left; no open areas) Extremities: positive: Pedal edema (swelling over top of left foot most p ronounced) Neurologic/Psychiatric: positive: Mood/affect nml, Flat affect Palliative Care - POLST Patient has POLST: Yes POLST Status: DNR, Selective Treatment Pain: Comment (no symptoms of pain on exam) Constipation: Yes, Managed Performance Status: Patient did ambulate for me, was having more difficulty getting from sitting to standing; Gait remains quite shuffled. He is still feeding himself, he is still ambulating around the facility, though staff reports he is slowing down sitting more and sleeping more in his recliner. His Varsha, who is his roommate, does appear to have worsening dementia and is settled down as well. She had often been the driving force for getting him to walk around the facility. - Palliative Care Discussion: Patient is highest risk continues to be fall, as he is quite impulsive, and fairly large. His gait is shuffled, he has not had significant injury up to this point. Son continues to want to focus on quality of life, recognizing patient is slowly declining. He has been unable to visit because of COVID-19, he is finally coming out to check on the property and get supplies etc., knows it patient would not be able to follow precautions. Most likely is not going to force the visit, did send pictures per his request of him currently. Patient most likely may or may not recognize him, but does not recognize his current situation as not "being visited". Reassured son patient is getting good care, patient's does appear to have more rapid changes, and decline. He continues to try and provide support, is the D POA, and does want the best for his parents without prolonging suffering. Impression and Recommendations - Palliative Care Impression: This is an 89-year-old gentleman with advanced dementia, most likely vascular mixed with Alzheimer's, presenting as a FAS T7 B. He continues with persistent vocalizations, due to his dementia but does try to engage in conversation. He has had steady decline with slow functional changes, and increased incontinence, but no weight changes or infections. Palliative care to continue provide symptom management and anticipatory guidance. Recommendations/Counseling Done: 1. Dementia with behavioral disturbances. Patient has long-term history of vocalization, that do escalate with anxiety, he is currently controlled on risperidone 0.25 mg twice daily. Continuing citalopram 5 mg nightly for neuropsychiatric component, continue to monitor regimen and adjust as needed. 2. Lower extremity edema. This is left greater than right, has long standing history, appears to be at baseline. Does have some mild venous stasis changes, does need toenails clipped regarding risk of infection. Will coordinate with nursing staff. Continue to monitor, patient dislikes RANDY hose, does have appropriate footwear. 3. History of left ankle injury, no change. Patient does have history of prior left ankle injury, does not appear to be providing any discomfort. Patient is still ambulatory. We will continue to monitor. Patient is unable to use a walker, has previously been in the wheelchair, but with impulsivity actually increases his fall risk. We will continue to monitor. 4. Advanced care planning. Goals continue to focus on quality of life issues, son recognizes patient's ongoing slow decline, concern regarding 's more rapid decline. Goal is to continue to keep them there together, as long as doing okay with behaviors. Varsha has calmed down, so less agitated and has improved situation overall. Time Spent: [facility] [address] Coordination of care with facility staff, follow-up with son, counseling provided regarding anticipatory guidance and revisit of goals.
== END 2020-05-28 13:01 | disposition home or self-care (01) ==
LOC: PC 13:00
PROVIDERS: ATTEND Nurse Practitioner Adult Health
DX: Z51.5 Encounter for palliative care (principal); F03.91 Unspecified dementia, unspecified severity, with behavioral disturbance; F42.9 Obsessive-compulsive disorder, unspecified; R60.0 Localized edema; R53.1 Weakness; R32 Unspecified urinary incontinence; R15.9 Full incontinence of feces; Z79.899 Other long term (current) drug therapy; Z87.828 Personal history of other (healed) physical injury and trauma; Z66 Do not resuscitate

== ENCOUNTER 2020-08-07 10:00 | Outpatient (CLI) | payer MEDICARE ==
--- NOTE | 2020-08-07 11:26 | CONSULTATION NOTE ---
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 He does have a history of OCD behaviors, which was present prior to his cognitive decline. He does have compulsive vocalizations, and has remained on risperidone 0.25 mg twice daily, has failed dose reduction in the past. 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 Was trying to have a conversation with me and socially respond, though a few words popped out, most of it was vocalizations. Patient was able to get up from sitting to standing, his gait is shuffled. Staff report he continues with behaviors of walking the halls in circles, has not had any further falls. He does have intermittent left lower extremity swelling, this does fluctuate, have done a few rounds of furosemide for few days with response. Patient is not incontinent in his pants most often, but often pees not in the toilet but in garbage cans and corners.This makes those behaviors in his distress more apparent, when he is on diuretics. He is intermittently incontinent of stool. Staff do observe his continue to slow down, is sleeping later, spending more time in his room, less engaged with his Varsha. They used to do everything together and go to meals together,, I did find patient sitting at table without her after breakfast. She is declining as well. He has not had any infections, he does have lower extremity venous stasis, no open areas, skin remains quite scaly and slightly pink. [place] area on 4 th right toe, is getting nail care, will confirm. Past Medical History: Hyperlipidemia, murmur, sleep apnea without CPAP use, dementia with behavioral disturbances, BPH, glaucoma, osteoarthritis. Social History - Living Situation Living arrangement: Assisted living Living Situation: With spouse/s.o. Support System: Both patient and his replaced the same time in memory care unit, in a shared room. 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 He has not seen him since the pandemic, he is planning at this point to see them actually today. We will compare notes later. Medications/Allergies - Medications Home Medications: Ambulatory Orders Medication Instructions Recorded Confirmed Lorazepam [Ativan] 0.5 mg PO Q6H PRN 06/14/17 08/07/20 risperiDONE [RisperDAL] 0.25 mg PO BID 06/14/17 08/07/20 Acetaminophen 500 mg PO Q4H PRN MDD 3000 mg max 09/09/17 08/07/20 per day Ceramides 1,3,6-11 [Cerave] 1 applic TOP BID 11/18/18 08/07/20 Loratadine 10 mg PO QPM 11/18/18 08/07/20 polyethylene glycoL 3350 [Miralax] 8.5 gm PO DAILY 03/16/19 08/07/20 Citalopram [CeleXA] 5 mg PO QPM 10/05/19 08/07/20 Sennosides [Senna Lax] 8.6 mg PO DAILY 05/28/20 08/07/20 - Allergies Allergies/Adverse Reactions: Allergies Allergy/AdvReac Type Severity Reaction Status Date / Time No Known Drug Allergies Allergy Verified 12/14/18 16:52 Review of Systems - Constitutional Constitutional: reports: Weight stable (203). denies: Fever - Cardiovascular Cardiovascular: reports: Edema - Respiratory Respiratory: denies: Cough, SOB at rest - Gastrointestinal Gastrointestinal: reports: Good appetite (still able to feed self). denies: Constipation - Genitourinary Genitourinary: reports: Incontinence - Musculoskeletal Musculoskeletal: reports: Stiffness, Joint pain (left ankle) - Integumentary Integumentary: reports: Dryness (venous stasis) - Neurological Neurological: reports: Memory problems - Psychiatric Psychiatric: reports: Aggitation (at times when trying to get him to cooperate; likes sweets can be enticed) - All Other Systems All Other Systems: reports: Other (limited ROS with dementia) Physical Exam - Vital Signs Temperature: 96.5 C Pulse Rate: 72 Respiratory Rate: 16 O2 Saturation: 95 (ra @ rest) Blood Pressure: 102/64 - Physical Exam General Appearance: positive: Alert, Anxious Eyes Bilateral: positive: Normal inspection ENT: positive: No signs of dehydration Neck: positive: Trachea midline Cardiovascular: positive: Regular rate & rhythm, Other (murmer) Respiratory: positive: No respiratory distress, Breath sounds nml Abdomen: positive: Non-tender, Soft, Nml bowel sounds Skin: positive: Other (LE dryness; venous stasis; no open areas; 4th right toes with some redness; nails long) Extremities: positive: Pedal edema (swelling over top of left foot most pronounced, 1-2+ right; 2-3+ left) Neurologic/Psychiatric: positive: Mood/affect nml, Unintelligible speech, Flat affect Palliative Care - POLST Patient has POLST: Yes POLST Status: DNR, Selective Treatment Pain: No pain (noted on exam for pain behaviors) Sleep: Sleeps well Constipation: No, Managed Performance Status: Patient more sedentary from baseline, but is still ambulating several times a day, both to meals and around in the hallways. He is dependent for bathing, he is still able to self feed. No choking or difficulty swallowing noted. He does need assistance with dressing. - Palliative Care Discussion: Son was visiting from [place], did speak with him, had a visit with his father later in the afternoon. Feels like he is doing pretty well, and did recognize him. Try to say a few words, does see that he is moving slower, he is more surprised by the dramatic decline from his mother. Goals continue to focus on quality of life issues, way decisions as they come up. We did discuss in the context of patient's risk is mostly for sequela of a fall at this point in time. We will continue to monitor every few months, staff usually did not notify and if there is any changes. Impression and Recommendations - Palliative Care Impression: This is an 89-year-old gentleman with advanced dementia, vascular mixed with A lzheimer's, presenting as an FAS T7 B. He continues with persistent vocalizations, due to his dementia but does try to engage in conversation. He has had steady functional Daniels, increased incontinence, but remains weight neutral and no infections. Goals remain to focus on quality of life issues, palliative care to continue provide symptom management and anticipatory guidance. Recommendations/Counseling Done: 1. Dementia with behavioral disturbances. Patient's long history of vocalizations, that do escalate with anxiety. He is currently controlled on risperidone 0.25 mg twice daily. He is continuing with citalopram 5 mg nightly for neuropsychiatric component, continue to manage current regimen and adjust as needed. No changes after today's visit. 2. Lower extremity edema. This is been longstanding and history, does have mild venous stasis changes, patient dislikes teds, does have appropriate footwear and supportive diabetic socks on. We will continue to use intermittent furosemide for weight changes and problematic swelling. Currently no indication to treat at this point in time. 3. Advanced care planning. Goals remain to continue on quality of life issues, Patient continues with very slow decline. He is still functional, and way treatment decisions with a focus on comfort and not to prolong suffering. Son still perceives patient has fairly good quality of life, is continue to provide support visiting every few months. Time Spent: 30 minutes with greater than 50% of this done in counseling regarding coord ination of care, follow-up with staff, anticipatory guidance with son.
== END 2020-08-07 10:01 | disposition home or self-care (01) ==
LOC: PC 10:00
PROVIDERS: ATTEND Nurse Practitioner Adult Health
DX: Z51.5 Encounter for palliative care (principal); G30.9 Alzheimer's disease, unspecified; F02.81 Dementia in other diseases classified elsewhere, unspecified severity, with behavioral disturbance; I87.2 Venous insufficiency (chronic) (peripheral); R60.0 Localized edema; Z79.899 Other long term (current) drug therapy; Z66 Do not resuscitate

== ENCOUNTER 2020-09-02 00:17 | Outpatient (CLI) | payer MEDICARE | END 2020-09-02 00:18 | disposition E | LOC: EMS 00:17 | PROVIDERS: ATTEND Surgery ==